=== PATIENT | male | born 1975 | race Caucasian/White ===

== ENCOUNTER 2017-10-30 19:14 | Emergency (ER) | payer BC ==
[2017-10-30 19:35] VITALS: BP 134/85
[2017-10-30] MEDS ORDERED: NAPROXEN 250 MG TABLET PO ONE (20:28)
[2017-10-30] MEDS ORDERED: CLINDAMYCIN HCL 150 MG CAPSULE PO ONE (20:28)
--- NOTE | 2017-10-30 20:31 | ER Document Report ---
HPI - HPI Patient complains to provider of: Right elbow swelling Onset: Just prior to arrival Onset/Duration: Gradual Quality of pain: Achy Pain Level: 4 Context: Patient presents complaining of right elbow swelling. Patient states he has similar episode one week ago but that it got better. Patient states area started to swell again today. Patient denies any trauma or rubbing of the elbow. Patient denies any fever. Associated Symptoms: Other - Right elbow tenderness with swelling. 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 IN LAST 30 DAYS: No - HEENT HEENT: Atraumatic, Normocephalic - NECK Neck: Normal Inspection, Supple - RESPIRATORY Respiratory: Breath Sounds Normal, No Respiratory Distress O2 Sat by Pulse Oximetry: 96 - CARDIOVASCULAR Cardiovascular: Regular Rate, Regular Rhythm Pulses: Normal: Radial - MUSCULOSKELETAL/EXTREMETIES Musculoskeletal/Extremeties: MAEW, FROM, Tender - Right olecranon tenderness with swelling and mild erythema, Edema - NEURO Level of Consciousness: Awake, Alert, Appropriate Motor/Sensory: No Motor Deficit, No Sensory Deficit - DERM Integumentary: Warm, Dry. negative: Abscess Notes: Erythema overlying olecranon process of right elbow Course - Re-evaluation Re-evalutation: 10/30/17 20:29 No concern for septic arthritis at this time. No concern for abscess overlying elbow. Will cover with antibiotic as patient is insistent that he has not had any traumatic injury or prolonged pressure to the elbow. Patient with full range of motion of his joint. Smoking cessation handout provided to patient - Vital Signs Vital signs: Temp Pulse Resp BP Pulse Ox 97.7 F 74 22 H 134/85 H 96 10/30/17 19:34 10/30/17 19:34 10/30/17 19:34 10/30/17 19:34 10/30/17 19:34 Discharge - Discharge Clinical Impression: Olecranon bursitis Qualifiers: Laterality: right Qualified Code(s): M70.21 - Olecranon bursitis, right elbow Condition: Stable Disposition: HOME, SELF-CARE Instructions: Anti-Inflammatory Medication ([facility]), Clindamycin ([facility]), Olecranon Bursitis ([facility]) Additional Instructions: Return immediately for any new or worsening symptoms Followup with your primary care provider, call tomorrow to make a followup appointment Follow-up with your orthopedic surgeon for further evaluation Prescriptions: Clindamycin HCl [Cleocin Hcl] 300 mg PO QID #28 capsule Naproxen [Naprosyn] 500 mg PO BID #14 tablet Forms: Smoking Cessation Education Referrals: [facility] [Provider Group] - 11/01/17
== END 2017-10-30 21:09 | disposition home or self-care (01) ==
LOC: ER 19:14
DX: M70.21 Olecranon bursitis, right elbow (principal); M79.89 Other specified soft tissue disorders; M25.521 Pain in right elbow; F17.200 Nicotine dependence, unspecified, uncomplicated
CPT/HCPCS: 99283

== ENCOUNTER 2018-03-15 16:55 | Observation (INO) | payer BC, OTHER ==
[2018-03-15] MEDS ORDERED: HYDROMORPHONE HCL INJ/PF 2 MG/ML AMPULE IV ONE ×2 (17:41→19:17)
[2018-03-15] MEDS ORDERED: DEXAMETHASONE SOD PHOS INJ 10 MG/1 ML VIAL IV ONE (17:42)
[2018-03-15] MEDS ORDERED: ONDANSETRON HCL INJ/PF 4 MG/2 ML SDV IV ONE (17:54)
[2018-03-15] MEDS ORDERED: METHOCARBAMOL INJ/PF 1000 MG/10 ML SDV IV ONE (18:09)
--- NOTE | 2018-03-15 18:36 | ER Document Report ---
ED General Pain - General Mode of Arrival: Medic Information source: Patient TRAVEL OUTSIDE OF THE U.S. IN LAST 30 DAYS: No <NADER ARTEAGA - Last Filed: 03/15/18 18:42> <PETEY SOMERS - Last Filed: 03/15/18 22:23> - General Chief Complaint: Back Pain Stated Complaint: BACK PAIN Time Seen by Provider: 03/15/18 17:28 Notes: Patient is a 42-year-old male who presents to the ER today 1 day post lumbar discectomy and cage placement at [facility] by Dr. Mitchell. Patient states that he was discharged this morning, was walking around the hospital just fine, took a [address] home and once home started to hurt. Patient states that he had a block placed in the hospital that made his left leg numb that it started to wear off on the drive. He states that his entire low back is hurting and radiating pain across the entire lower abdomen. He denies any numbness or tingling, loss of bladder or bowel function. He admits "I can finally feel my legs for the first time in 2 days." Patient states "I just need to be admitted so that my does not have to lift me, I do not want her to hurt herself if I am in pain like this." Patient was discharged on oxycodone which she has been on for years. (NADER ARTEAGA) - Related Data Allergies/Adverse Reactions: Penicillins Allergy (Severe, Verified 10/30/17 19:16) Anaphylaxis Past Medical History - General Information source: Patient - Social History Smoking Status: Current Every Day Smoker Chew tobacco use (# tins/day): No Drug Abuse: None Family History: Reviewed & Not Pertinent Patient has suicidal ideation: No Patient has homicidal ideation: No Renal/ Medical History: Denies: Hx Peritoneal Dialysis Past Surgical History: Reports: Hx Herniorrhaphy, Hx Orthopedic Surgery - back, umbilical, double hernia, <NADER ARTEAGA - Last Filed: 03/15/18 18:42> Review of Systems - Review of Systems Constitutional: No symptoms reported EENT: No symptoms reported Cardiovascular: No symptoms reported Respiratory: No symptoms reported Gastrointestinal: See HPI Genitourinary: No symptoms reported Male Genitourinary: No symptoms reported Musculoskeletal: See HPI Skin: No symptoms reported Hematologic/Lymphatic: No symptoms reported Neurological/Psychological: No symptoms reported <NADER ARTEAGA - Last Filed: 03/15/18 18:42> Physical Exam <NIYAHCARSONNADER GRANGER - Last Filed: 03/15/18 18:42> <PETEY SOMERS - Last Filed: 03/15/18 22:23> - Vital signs Vitals: Temp Pulse Resp BP Pulse Ox 97.9 F 83 20 136/84 H 94 03/15/18 17:44 03/15/18 17:44 03/15/18 17:44 03/15/18 17:44 03/15/18 17:44 - Notes Notes: PHYSICAL EXAMINATION: GENERAL: Obviously in pain, laying very still in the bed, in no acute distress. HEAD: Atraumatic, normocephalic. EYES: Pupils equal round and reactive to light, extraocular movements intact, sclera anicteric, conjunctiva are normal. NECK: Normal range of motion, supple without lymphadenopathy LUNGS: CTAB and equal. No wheezes rales or rhonchi. HEART: Regular rate and rhythm without murmurs ABDOMEN: Soft, left sided tenderness over incision, no induration or fluctuance. No guarding, no rebound BACK: Back brace on, lumbar vertebral tenderness, decreased ROM due to pain GI/: no CVA tenderness EXTREMITIES: Normal range of motion, good capillary refill, pulses and sensation distal legs, no pitting edema. No cyanosis. NEUROLOGICAL: Cranial nerves grossly intact. Normal sensory/motor exams. PSYCH: Normal mood, normal affect. SKIN: Warm, Dry, normal turgor, incision to left abdominal wall, well appearing (JENNINADER) Course <NADER ARTEAGA - Last Filed: 03/15/18 18:42> - Laboratory Result Diagrams: 03/15/18 18:55 03/15/18 18:55 <PETEY SOMERS - Last Filed: 03/15/18 22:23> - Re-evaluation Re-evalutation: 03/15/18 22:21 Patient is an afebrile, well-hydrated, 42-year-old male who presents to the ED with low back pain and left lower abdominal pain status post surgery yesterday. His pain is currently intractable, but does ease up with medications. CBC and BMP as well as an MRI of the lower back was unremarkable for any acute pathology at this time. Transfer not warranted, discussed with our hospitalist who evaluated the patient and accepted admission for intractable pain. He has no other significant tachycardia, tachypnea, or hypoxia. He is able to tolerate p.o. without difficulties. Direction per hospitalist otherwise. Patient and are in agreement. (PETEY SOMERS) - Vital Signs Vital signs: Temp Pulse Resp BP Pulse Ox 97.9 F 83 11 L 111/71 95 03/15/18 17:44 03/15/18 17:44 03/15/18 20:01 03/15/18 20:01 03/15/18 20:01 - Laboratory Laboratory results interpreted by me: 03/15/18 18:55 Carbon Dioxide 31 H Discharge <NADER ARTEAGA - Last Filed: 03/15/18 18:42> - Discharge Admitting Provider: Hospitalist - Dr. Wagner Unit Admitted: Medical Floor <PETEY SOMERS - Last Filed: 03/15/18 22:23> - Discharge Clinical Impression: Intractable back pain Condition: Stable Disposition: ADMITTED INPATIENT
[2018-03-15 19:12] LABS: ABSOLUTE BASOPHILS # (AUTO) 0.1 10^3/uL (0.0-0.2); ABSOLUTE EOSINOPHILS # (AUTO) 0.3 10^3/uL (0.0-0.6); ABSOLUTE LYMPHOCYTES (AUTO) 1.2 10^3/uL (0.5-4.7); ABSOLUTE MONOCYTES (AUTO) 0.7 10^3/uL (0.1-1.4); ABSOLUTE NEUT (AUTO) 7.1 10^3/uL (1.7-8.2); BASOPHILS % (AUTO) 0.6 % (0-2); EOSINOPHILS % (AUTO) 3.4 % (0-6); HEMATOCRIT 41.8 % (37.9-51.0); HEMOGLOBIN 14.4 g/dL (13.5-17.0); LYMPHOCYTES % (AUTO) 13.3 % (13-45); MEAN CORPUSCULAR HGB CONC 34.5 g/dL (32.0-36.0); MEAN CORPUSCULAR VOLUME 90 fl (80-97); MONOCYTES % (AUTO) 7.1 % (3-13); PLATELET COUNT 160 10^3/uL (150-450); RED BLOOD COUNT 4.66 10^6/uL (4.35-5.55); RED CELL DISTRIBUTION WIDTH 12.9 % (11.5-14.0); SEGMENTED NEUTROPHILS % (AUTO) 75.6 % (42-78); TOTAL CELLS COUNTED % (AUTO) 100 %; WHITE BLOOD COUNT 9.4 10^3/uL (4.0-10.5)
[2018-03-15 19:19] LABS: ANION GAP 8 (5-19); BLOOD UREA NITROGEN 14 mg/dL (7-20); CARBON DIOXIDE 31 mmol/L (22-30); CHLORIDE 103 mmol/L (98-107); GLUCOSE 107 mg/dL (75-110); POTASSIUM 4.3 mmol/L (3.6-5.0); SODIUM 141.6 mmol/L (137-145)
--- NOTE | 2018-03-15 21:49 | RADIOLOGY REPORT (SQ) ---
EXAM DESCRIPTION: MRI LUMBAR SPINE COMBO COMPLETED DATE/TIME: 03/15/2018 9:36 pm REASON FOR STUDY: discectomy yesterday, cage placed, acute pain COMPARISON: None. TECHNIQUE: Sagittal and Axial imaging includes T1, T1 post gadolinium, T2, STIR and gradient echo se quences. Coronal T2/HASTE imaging. CONTRAST TYPE AND DOSE: 20 mL Multihance. RENAL FUNCTION: GFR > 60. LIMITATIONS: None. FINDINGS: VISUALIZED UPPER ABDOMEN: Limited evaluation. No acute or suspicious findings suggested. SEGMENTATION: No transitional anatomy. The lowest well-developed disc space is labeled L5-S1. ALIGNMENT: Anatomic. VERTEBRAE: Intact. No fractures. BONE MARROW: Normal. No marrow replacement or reactive changes. DISC SIGNAL: Normal. No significant abnormal signal or loss of height. POSTERIOR ELEMENTS: Generally intact. No pars defect evident. HARDWARE: Disc inserts and hardware at L4-L5. CORD AND CONUS: Normal in size and signal intensity. Conus at the appropriate level. SOFT TISSUES: No aortic aneurysm seen. No bulky retroperitoneal adenopathy or mass. No paraspinal mas s or fluid. L1-L2: No significant spinal stenosis or exit foraminal stenosis. L2-L3: No significant spinal stenosis or exit foraminal stenosis. L3-L4: No significant spinal stenosis or exit foraminal stenosis. L4-L5: Moderate facet arthropathy. No significant spinal stenosis or exit foraminal stenosis. L5-S1: No significant spinal stenosis or exit foraminal stenosis. LOWER THORACIC: Incompletely imaged. No stenosis seen. SACRUM: Visualized upper sacrum intact. ENHANCEMENT: No abnormal enhancement. OTHER: No other significant findings. IMPRESSION: SURGICAL CHANGES WITH HARDWARE AT L4-L5. OTHERWISE UNREMARKABLE MRI OF THE LUMBAR SPINE . NO STENOSIS OR IMPINGEMENT. NO POSTOPERATIVE COMPLICATION. TECHNICAL DOCUMENTATION: JOB ID: [id number] [employer]- All Rights Reserved Reading location - IP/workstation name: [email or web address]
[2018-03-15] MEDS ORDERED: ONDANSETRON HCL INJ/PF 4 MG/2 ML SDV IV PRN (22:27)
[2018-03-15] MEDS ORDERED: ACETAMINOPHEN 650 MG SUPP.RECT PR PRN (22:27)
[2018-03-15] MEDS ORDERED: FENTANYL 75 MCG/HR PATCH.TD72 TD ONE (22:32)
--- NOTE | 2018-03-15 22:44 | PDOC H&P ---
History of Present Illness Admission Date/PCP: 03/15/18 22:25 History of Present Illness: NORMAN MIRELES is a 42 year old male patient who does not have significant medical problem except back pain and for which she has multiple back surgeries. His recent back surgery was the day before yesterday and he had lumbar discectomy and cage placement at [facility] by Dr. Mitchell. Patient discharged this morning back home after 3 hours driving. By the time he arrived home he starts to have excruciating lower back pain radiating to his lower abdomen. He has been taking oxycodone 20 mg to no avail. Patient has MRI of the back here at ER and there is no evidence of hematoma. Patient denies weakness or numbness of the lower extremity. He is able to control his bowel and bladder. Patient denied any fever, chills, nausea, vomiting or diarrhea. No urinary complaint. No headache, dizziness or change in his visual status. Past Medical History Musculoskeltal Medical History: Reports: Other - Chronic back pain Past Surgical History Past Surgical History: Reports: Herniorrhaphy, Orthopedic Surgery - back, umbilical, double hernia, Social History Smoking Status: Current Every Day Smoker Drugs: None Family History Family History: None, Reviewed & Not Pertinent Parental Family History Reviewed: Yes Children Family History Reviewed: Yes Sibling(s) Family History Reviewed.: Yes Medication/Allergy Home Medications: Clindamycin HCl [Cleocin Hcl] 300 mg PO QID #28 capsule 10/30/17 Naproxen [Naprosyn] 500 mg PO BID #14 tablet 10/30/17 Allergies/Adverse Reactions: Penicillins Allergy (Severe, Verified 10/30/17 19:16) Anaphylaxis Review of Systems Constitutional: PRESENT: as per HPI Ears: PRESENT: as per HPI Cardiovascular: PRESENT: as per HPI Respiratory: PRESENT: as per HPI Gastrointestinal: PRESENT: as per HPI Neurological: PRESENT: as per HPI Psychiatric: PRESENT: as per HPI Physical Exam Vital Signs: Temp Pulse Resp BP Pulse Ox 97.9 F 83 11 L 111/71 95 03/15/18 17:44 03/15/18 17:44 03/15/18 20:01 03/15/18 20:01 03/15/18 20:01 General appearance: PRESENT: mild distress Head exam: PRESENT: atraumatic, normocephalic Mouth exam: PRESENT: dry mucosa Respiratory exam: PRESENT: clear to auscultation sera. ABSENT: rales, rhonchi, wheezes Cardiovascular exam: PRESENT: RRR. ABSENT: diastolic murmur, rubs, systolic murmur GI/Abdominal exam: PRESENT: normal bowel sounds, soft. ABSENT: distended, guarding, mass, organolmegaly, rebound, tenderness Neurological exam: PRESENT: alert, awake, oriented to time, oriented to situation Psychiatric exam: PRESENT: normal mood Results Impressions: Lumbar Spine MRI 03/15/18 17:41 IMPRESSION: SURGICAL CHANGES WITH HARDWARE AT L4-L5. OTHERWISE UNREMARKABLE MRI OF THE LUMBAR SPINE. NO STENOSIS OR IMPINGEMENT. NO POSTOPERATIVE COMPLICATION. Assessment & Plan - Diagnosis (1) Intractable back pain Is this a current diagnosis for this admission?: Yes Plan: Patient has been started on 2 mg of Dilaudid every 2 hours as needed, fentanyl patch 75 mcg every 72 hours, diazepam, Flexeril
[2018-03-15] MEDS ORDERED: CYCLOBENZAPRINE HCL 10 MG TABLET PO ONE (23:15)
[2018-03-15] MEDS ORDERED: DIAZEPAM 5 MG TABLET PO ONE (23:15)
[2018-03-16] MEDS: HYDROMORPHONE HCL INJ/PF 2 MG/ML AMPULE IV PRN ×8 (00:06→21:57)
[2018-03-16] MEDS: CYCLOBENZAPRINE HCL 10 MG TABLET PO SCH ×3 (05:06→21:56)
[2018-03-16] MEDS: LANSOPRAZOLE 15 MG TAB.RAP.DR PO SCH (05:06)
[2018-03-16] MEDS: DIAZEPAM 5 MG TABLET PO SCH ×3 (05:06→21:56)
[2018-03-16] MEDS: ENOXAPARIN SODIUM INJ 40 MG/0.4 ML DISP.SYRIN SUBCUT SCH (09:33)
[2018-03-16] MEDS: SENNOSIDES/DOCUSATE 8.6-50 MG 1 EACH TABLET PO SCH ×2 (11:11→18:50)
[2018-03-16] MEDS ORDERED: MAGNESIUM CITRATE 296 ML BOTTLE PO ONE (21:45)
[2018-03-17] MEDS: HYDROMORPHONE HCL INJ/PF 2 MG/ML AMPULE IV PRN ×4 (00:13→09:23)
[2018-03-17] MEDS: CYCLOBENZAPRINE HCL 10 MG TABLET PO SCH ×3 (06:17→21:19)
[2018-03-17] MEDS: LANSOPRAZOLE 15 MG TAB.RAP.DR PO SCH (06:17)
[2018-03-17] MEDS: DIAZEPAM 5 MG TABLET PO SCH ×3 (06:17→21:02)
--- NOTE | 2018-03-17 08:32 | Progress Note ---
Provider Note Provider Note: Agree with Associate Medical Director plan of care. Continue IV dilaudid and valium for back pain. The patient states that his pain is relatively well controlled, rates the severity 3/5. Patient states that his home regimen of Oxycodone and Oxycontin did not work to control his pain. Consulted Dr. Mayo (pain management), appreciate his recommendations
[2018-03-17] MEDS: ENOXAPARIN SODIUM INJ 40 MG/0.4 ML DISP.SYRIN SUBCUT SCH (09:16)
[2018-03-17] MEDS: SENNOSIDES/DOCUSATE 8.6-50 MG 1 EACH TABLET PO SCH ×2 (10:10→18:31)
[2018-03-17] MEDS: OXYCODONE HCL SR 10 MG TABLET PO SCH ×2 (14:10→21:00)
[2018-03-17] MEDS: OXYCODONE HCL IR 5 MG TABLET PO PRN ×2 (16:46→21:00)
--- NOTE | 2018-03-17 17:56 | PDOC PROGRESS REPORT ---
Subjective Progress Note for:: 03/17/18 Subjective:: NORMAN MIRELES is a 42 y.o. male who presented to the emergency department with back pain following a recent lumbar discectomy and cage placement at [facility] in [place]. He has no PMH other than chronic back pain. The patient was seen this morning on rounds, he was ambulating in the hallway with a walker. The patient states that while he is able to ambulate it is very painful. He denies parasthesia to his lower extremities and has full ROM ( albeit painful). The patient states that the current regimen of IV Dilaudid and Versed is moderately controlling his pain. Consulted with Dr. Mayo ([facility] pain management) this morning, who coincidentally had a teleconference earlier today with the patient's pain management doctor from [place]. Dr. Mayo recommends increasing the frequency of patient's home pain regimen (see below for details). Reason For Visit: INTRACTABLE PAIN Physical Exam Vital Signs: Temp Pulse Resp BP Pulse Ox 98.4 F 63 16 118/68 97 03/17/18 11:48 03/17/18 11:48 03/17/18 11:48 03/17/18 11:48 03/17/18 11:48 Intake & Output 03/16/18 03/17/18 03/18/18 06:59 06:59 06:59 Intake Total 320 644 Balance 320 644 Weight 107.2 kg 110.3 kg General appearance: PRESENT: no acute distress Eye exam: PRESENT: conjunctiva pink, PERRLA Mouth exam: PRESENT: moist Neck exam: PRESENT: full ROM Respiratory exam: PRESENT: symmetrical, unlabored Cardiovascular exam: PRESENT: +S1, +S2 Pulses: PRESENT: normal radial pulses, normal dorsalis pedis pul GI/Abdominal exam: PRESENT: soft, tenderness - +TTP at L flank surgical site Rectal exam: PRESENT: deferred Extremities exam: PRESENT: full ROM Musculoskeletal exam: PRESENT: ambulatory - w/ walker, full ROM Neurological exam: PRESENT: alert, awake, oriented to person, oriented to place , oriented to time, oriented to situation Psychiatric exam: PRESENT: appropriate affect Skin exam: PRESENT: intact, normal color, warm, other - Surgical incision is clean dry and intact Results Impressions: Lumbar Spine MRI 03/15/18 17:41 IMPRESSION: SURGICAL CHANGES WITH HARDWARE AT L4-L5. OTHERWISE UNREMARKABLE MRI OF THE LUMBAR SPINE. NO STENOSIS OR IMPINGEMENT. NO POSTOPERATIVE COMPLICATION. Status: Imported from PACS Assessment & Plan - Diagnosis (1) Intractable back pain Is this a current diagnosis for this admission?: Yes Plan: Improving. S/p lumbar discectomy and cage placement at [facility] in [place] He was discharged home and he was the passenger in a 3 [address] ride from [place] to [place]. Admitted for intractable pain Consulted Dr. Mayo ([facility] Pain Mgmt.) who recommended increasing the frequenct of the patient's home medication regimen. Patient started on Oxycontin 20mg TID and Oxy-IR 10mg q4hr. If this pain regimen does not work, will re-consult Dr. Mayo, who stated he will come to the hospital and assess the patient. If the new regimen is able to control the patient's pain, plan for discharge tomorrow morning. - Time Time Spent with patient: 15-24 minutes Medications reviewed and adjusted accordingly: Yes Anticipated discharge: Home Within: within 24 hours - Inpatient Certification Based on my medical assessment, after consideration of the patient's comorbidities, presenting symptoms, or acuity I expect that the services needed warrant INPATIENT care.: Yes I certify that my determination is in accordance with my understanding of Medicare's requirements for reasonable and necessary INPATIENT services [42 CFR 412.3e].: Yes Medical Necessity: Risk of Complication if Not Cared For in Hospital
[2018-03-17] MEDS ORDERED: POLYETHYLENE GLYCOL 3350 POWDER 17 GM/1 PACKET PO ONE (21:00)
[2018-03-17] MEDS ORDERED: HYDROMORPHONE HCL INJ/PF 2 MG/ML AMPULE IV ONE (23:45)
[2018-03-17] MEDS ORDERED: HYDROMORPHONE HCL INJ/PF 2 MG/ML AMPULE ONE (23:47)
[2018-03-18] MEDS: OXYCODONE HCL IR 5 MG TABLET PO PRN ×3 (01:43→10:28)
[2018-03-18] MEDS: OXYCODONE HCL SR 10 MG TABLET PO SCH (06:07)
[2018-03-18] MEDS: CYCLOBENZAPRINE HCL 10 MG TABLET PO SCH (06:07)
[2018-03-18] MEDS: LANSOPRAZOLE 15 MG TAB.RAP.DR PO SCH (06:08)
[2018-03-18] MEDS: DIAZEPAM 5 MG TABLET PO SCH (06:20)
[2018-03-18] MEDS ORDERED: SENNOSIDES/DOCUSATE 8.6-50 MG 1 EACH TABLET PO SCH (10:00)
[2018-03-18] MEDS: ENOXAPARIN SODIUM INJ 40 MG/0.4 ML DISP.SYRIN SUBCUT SCH (10:30)
[2018-03-18] MEDS ORDERED: MAGNESIUM HYDROXIDE SUSP 30 ML UDCUP PO ONE (12:30)
[2018-03-18 13:03] VITALS: BP 119/75
--- NOTE | 2018-03-21 13:27 | PDOC DISCHARGE SUMMARY ---
General - Admit/Disc Date/PCP Admission Date/Primary Care Provider: 03/15/18 22:25 Discharge Date: 03/18/18 - Discharge Diagnosis (1) Intractable back pain Is this a current diagnosis for this admission?: Yes - Additional Information Resuscitation Status: Full Code Discharge Diet: As Tolerated Discharge Activity: Activity As Tolerated Prescriptions: Sennosides/Docusate 8.6-50 mg [Senna Plus Tablet] 2 each PO BID #120 tablet Home Medications: Oxycodone HCl [Oxycodone HCl 10 MG Tablet] 10 mg PO QID PRN 03/16/18 Oxycodone HCl [Oxycontin Sr 10 mg Tablet] 20 mg PO BID 03/16/18 Sennosides/Docusate 8.6-50 mg [Senna Plus Tablet] 2 each PO BID #120 tablet History of Present Illness History of Present Illness: NORMAN MIRELES is a 42 year old male patient who does not have significant medical problem except back pain and for which she has multiple back surgeries. His recent back surgery was the day before yesterday and he had lumbar discectomy and cage placement at [facility] by Dr. Mitchell. Patient discharged this morning back home after 3 hours driving. By the time he arrived home he starts to have excruciating lower back pain radiating to his lower abdomen. He has been taking oxycodone 20 mg to no avail. Patient has MRI of the back here at ER and there is no evidence of hematoma. Patient denies weakness or numbness of the lower extremity. He is able to control his bowel and bladder. Patient denied any fever, chills, nausea, vomiting or diarrhea. No urinary complaint. No headache, dizziness or change in his visual status. Hospital Course Hospital Course: 42-year-old male presented to the emergency department with complaints of lower back pain. The patient states he recently underwent back surgery at [facility] in [place]. Upon his day of discharge, the patient and his drove 3 hours from [place] to [place], [place]. Upon arrival to ID, the patient began experiencing significant back pain. The patient denied paresthesias to his lower extremities, he did not lose bowel or bladder function , and he was able to ambulate with the use of a walker. The patient was admitted to [facility] for intractable pain. The patient had a long-standing history of chronic back pain, he was followed by a traffic line painter in [place]. He was on a daily regimen of oxycodone and OxyContin, which was continued on a temporary basis following his back surgery. Initially treated with IV Dilaudid and IV Valium as needed. Dr. Mayo, pain management, was consulted. He recommended increasing the frequency of the patient's home dose oxycodone and OxyContin. The patient was started on a regimen of Oxycontin 20mg TID and Oxy-IR 10mg q4hr. Physical therapy was able to evaluate and treat the patient, they recommended a number of assistive devices including a rolling walker and bedside commode. Discharge planning was able to arrange for delivery of these items. After 24 hours on his new pain regimen, the patient stated that his pain was tolerable and that he wanted to go home. Ultimately, the patient was discharged with instructions regarding his new regimen (new narcotics prescriptions were not required since he already had the appropriate medications at home). Additionally, the patient expressed a desire to follow- up with a local pain management doctor, he was given a referral for Dr. Mayo. Physical Exam Vital Signs: Temp Pulse Resp BP Pulse Ox 97.4 F 70 19 119/75 97 03/18/18 13:00 03/18/18 13:00 03/18/18 13:00 03/18/18 13:00 03/18/18 13:00 Results Impressions: Lumbar Spine MRI 03/15/18 17:41 IMPRESSION: SURGICAL CHANGES WITH HARDWARE AT L4-L5. OTHERWISE UNREMARKABLE MRI OF THE LUMBAR SPINE. NO STENOSIS OR IMPINGEMENT. NO POSTOPERATIVE COMPLICATION. Status: Imported from PACS Qualifiers - * PATIENT BEING DISCHARGED WITH ANY OF THE FOLLOWING DIAGNOSIS: No Plan Discharge Plan: Discharge home with follow-up to Dr. Mayo, traffic line painter Time Spent: Less than 30 Minutes
== END 2018-03-18 13:00 | disposition home health service (06) ==
LOC: ER 16:55 → EH 22:25 → INTOOBSV 22:25 → OBSVTOIN 22:25 → 5 23:50 → INTOOBSV 03-17 12:47 → OBSVTOIN 03-17 12:47 → UNDODISIN 03-18 13:00
PROVIDERS: ADMIT Internal Medicine; ATTEND Internal Medicine
DX: M54.89 Other dorsalgia (principal); Z98.890 Other specified postprocedural states; F17.200 Nicotine dependence, unspecified, uncomplicated
CPT/HCPCS: 96376; 99285; 96374; 96375; 36415; 85025; 80048; 72158; 97116; 97163; 97530; 97535; 97167; G0378 ×3; A9270; J3490 ×6; J2800; J1650 ×2; J1170 ×3; J2405; J1100

== ENCOUNTER 2018-03-29 15:29 | Emergency (ER) | payer OTHER ==
[2018-03-29] MEDS ORDERED: DEXAMETHASONE SOD PHOS INJ 10 MG/1 ML VIAL IM ONE (17:09)
[2018-03-29] MEDS ORDERED: KETOROLAC TROMETHAMINE 60 MG/2 ML SDV IM ONE (17:09)
--- NOTE | 2018-03-29 17:12 | ER Document Report ---
ED Neck/Back Problem - General Chief Complaint: Back Pain Stated Complaint: FALL, BACK PAIN Time Seen by Provider: 03/29/18 17:06 Mode of Arrival: Ambulatory Information source: Patient Notes: 42-year-old male presents to ED for complaint of increasing back pain. He states that on the he had a surgery to L4-L5 with disc removed. He states he tripped over a shoe and fell over a footstool today now he has pain going down the left leg down to the foot with some pain on the right to the buttocks. He states his surgeon is Susan [facility] orth[facility] in [facility]. He states he has an appointment with his orthopedics on 31 March. He is on OxyContin 20 mg ER 2 times a day and oxycodone 10 mg 4 times a day as needed. He states he has not looking for pain medicine he is just trying to make sure there is nothing else he needs to do at this time. TRAVEL OUTSIDE OF THE [place] IN LAST 30 DAYS: No - HPI Patient complains to provider of: Pain, Lower back - Fall Onset: Other - Surgery on the fall today Where: Home Onset: Sudden Timing: Still present Quality of pain: Burning Severity: Moderate Context: Fall/near-fall Recent injury: Yes Associated symptoms: Radiation to leg, Lower back pain. denies: Numbness/ tingling Exacerbated by: Movement of trunk Relieved by: Nothing Similar symptoms previously: Yes Recently seen / treated by doctor: Yes - Related Data Allergies/Adverse Reactions: Penicillins Allergy (Severe, Verified 03/29/18 16:58) Anaphylaxis Past Medical History - General Information source: Patient - Social History Smoking Status: Unknown if Ever Smoked Chew tobacco use (# tins/day): No Smoking Education Provided: No Frequency of alcohol use: None Drug Abuse: None Family History: None, Reviewed & Not Pertinent Patient has suicidal ideation: No Patient has homicidal ideation: No - Past Medical History Cardiac Medical History: Reports: None Pulmonary Medical History: Reports: None EENT Medical History: Reports: None Neurological Medical History: Reports: None Endocrine Medical History: Reports: None Musculoskeltal Medical History: Reports Hx Musculoskeletal Deformity, Reports Hx Musculoskeletal Trauma Past Surgical History: Reports: Hx Herniorrhaphy, Hx Orthopedic Surgery - back, umbilical, double hernia, Review of Systems - Review of Systems Constitutional: No symptoms reported EENT: No symptoms reported Cardiovascular: No symptoms reported Respiratory: No symptoms reported Gastrointestinal: No symptoms reported Genitourinary: No symptoms reported Male Genitourinary: No symptoms reported Musculoskeletal: Back pain - Radiating to left foot and right buttocks, Muscle pain, Muscle stiffness Skin: No symptoms reported Hematologic/Lymphatic: No symptoms reported Neurological/Psychological: No symptoms reported -: Yes All other systems reviewed and negative Physical Exam - Vital signs Vitals: Temp Pulse Resp BP Pulse Ox 97.4 F 89 18 141/94 H 96 03/29/18 15:42 03/29/18 15:42 03/29/18 15:42 03/29/18 15:42 03/29/18 15:42 Interpretation: Normal - General General appearance: Appears well, Alert - HEENT Head: Normocephalic, Atraumatic Eyes: Normal Pupils: PERRL - Respiratory Respiratory status: No respiratory distress Chest status: Nontender Breath sounds: Normal Chest palpation: Normal - Cardiovascular Rhythm: Regular Heart sounds: Normal auscultation Murmur: No - Abdominal Inspection: Normal Distension: No distension Bowel sounds: Normal Tenderness: Nontender Organomegaly: No organomegaly - Back Back: Normal, Tender, Scars. No: Deformity/step-off, CVA tenderness, Vertebra tenderness, Scoliosis, Wounds - Extremities General upper extremity: Normal inspection, Nontender, Normal color, Normal ROM , Normal temperature General lower extremity: Normal inspection, Nontender, Normal color, Normal ROM , Normal temperature, Normal weight bearing. No: Olivia's sign - Neurological Neuro grossly intact: Yes Cognition: Normal Orientation: AAOx4 Mary Jane Coma Scale Eye Opening: Spontaneous Mary Jane Coma Scale Verbal: Oriented Mary Jane Coma Scale Motor: Obeys Commands Mary Jane Coma Scale Total: 15 Speech: Normal Motor strength normal: LUE, RUE, LLE, RLE Sensory: Normal - Psychological Associated symptoms: Normal affect, Normal mood - Skin Skin Temperature: Warm Skin Moisture: Dry Skin Color: Normal Course - Re-evaluation Re-evalutation: 03/30/18 02:16 Patient's assessment and history was discussed with Dr. Roman, he stated the patient did not need any imaging at this time. Patient was treated with Toradol and Decadron IM for his pain and encouraged to follow-up with his orthopedic doctor in [facility]. Patient is on OxyContin 20 mg ER 2 times a day and oxycodone 10 mg 4 times a day. Patient is to follow- up with his orthopedic doctor and to return to the ED for any signs or symptoms of cauda equina such as loss control of bowel bladder loss control of lower extremities loss of sensation to the saddle area or the lower extremities. He denies any of these at this time. He is able to get up and walk. He verbalized understanding of instructions and agreement with this treatment plan. - Vital Signs Vital signs: Temp Pulse Resp BP Pulse Ox 97.8 F 84 16 118/74 95 03/29/18 17:49 03/29/18 17:49 03/29/18 17:49 03/29/18 17:49 03/29/18 17:49 Discharge - Discharge Clinical Impression: Low back pain Qualifiers: Chronicity: acute Back pain laterality: bilateral Sciatica presence: with sciatica Sciatica laterality: sciatica of left side Qualified Code(s): M54.42 - Lumbago with sciatica, left side Condition: Stable Disposition: HOME, SELF-CARE Additional Instructions: LOW BACK PAIN: Three out of every four people will have an episode of disabling back pain during their lifetime. Most commonly the pain is due to straining of the muscles and ligaments in the low back. Usual treatment includes: (1) Rest on a firm surface. Avoid lying on your stomach. (2) Ice pack the painful area. After a few days, gentle heat may be used intermittently to relax the area, or ice packs can be continued. (3) Medication may be needed -- muscle relaxers and antiinflammatory medicines are commonly used. (4) As the back improves, exercises are prescribed to strengthen the back and abdominal muscles. Your doctor will advise you on the proper care for your back at each stage in your recovery. You may be better in a few days -- or healing may take several weeks. If new symptoms of a "herniated disc" (radiation of pain, numbness, or tingling down the back of the leg or weakness in the leg) occur, you should be re-examined. Further testing may be necessary. ICE PACKS: Apply ice packs frequently against the painful area. Many different schedules are recommended, such as "20 minutes on, 20 minutes off" or "one hour ice, two hours rest." If you need to work, you may need to go longer between ice treatments. You should plan to have the area ice packed AT LEAST one fourth of the time. The ice should be applied over the wrap, tape, or splint, or over a layer of cloth -- not directly against the skin. Some ice bags have a built-in cloth and can be put directly on the skin. WARM PACKS: After approximately two days, apply gentle heat (such as a heating pad or hot water bottle) for about 20 to 30 minutes about every two hours -- at least four times daily. Warmth and elevation will help you make a more rapid recovery , and will ease the pain considerably. Do not use HOT heat, and never apply heat for longer than 30 minutes. The continuous heat can invisibly damage skin and muscles -- even when no burn is seen on the surface. Damaged muscles can make you MORE sore. Toradol Injection You have been given an injection of ketorolac tromethamine (Toradol). This is an excellent, safe drug for pain control. It also has potent antiinflammatory action. You should have significant pain relief within about one hour. Toradol is not addicting and is non-sedating. It does not interfere with driving or work. Call or return if you develop itching, hives, shortness of breath, or rash. STEROID MEDICATION: You have been given an injection of medicine of the cortisone/steroid class. This medication is used to control inflammation or allergy. It is often continued as a pill for a short period of time, until the acute process subsides. There are usually no side effects from short-term use of cortisone-like medications. Some persons feel an increased sense of well-being and are not sleepy at bedtime. Long-term use of cortisone medications is best avoided, unless required for a severe condition. If your condition does not remit, or relapses after the course of corticosteroid medication, you should consult your physician. FOLLOW-UP CARE: If you have been referred to a physician for follow-up care, call the physician s office for an appointment as you were instructed or within the next two days. If you experience worsening or a significant change in your symptoms, notify the physician immediately or return to the Emergency Department at any time for re-evaluation. Follow-up with your orthopedic doctor as scheduled. You may can return to the ED immediately for any increase in pain or decrease in sensation to your legs. Please follow-up immediately for any loss of control of bowel or bladder. Forms: Elevated Blood Pressure
[2018-03-29 17:55] VITALS: BP 118/74
== END 2018-03-29 17:55 | disposition home or self-care (01) ==
LOC: ER 15:29
DX: M54.42 Lumbago with sciatica, left side (principal); M54.9 Dorsalgia, unspecified; W01.10XA Fall on same level from slipping, tripping and stumbling with subsequent striking against unspecified object, initial encounter; Z88.0 Allergy status to penicillin
CPT/HCPCS: 99283; 96372; J1885; J1100

== ENCOUNTER → 2018-09-19 | Outpatient (CLI) | payer OTHER ==
--- NOTE | 2018-09-19 15:45 | EKG REPORT ---
SEVERITY:- BORDERLINE ECG - SINUS RHYTHM BORDERLINE T ABNORMALITIES, INFERIOR LEADS : Confirmed by: Monserrat Espinoza MD 19-Sep-2018 15:45:12
== END ==
LOC: OD 08:05
PROVIDERS: ATTEND Pain Medicine Interventional Pain Medicine
DX: I49.9 Cardiac arrhythmia, unspecified (principal)
CPT/HCPCS: 93005; 93010

== ENCOUNTER 2019-01-04 06:35 | Observation (INO) | payer OTHER ==
--- NOTE | 2019-01-04 07:08 | ER Document Report ---
ED General - General Chief Complaint: Chest Pain Stated Complaint: CHEST PAINS Time Seen by Provider: 01/04/19 07:06 Mode of Arrival: Ambulatory Information source: Patient TRAVEL OUTSIDE OF THE [place] 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 Patient has a history of having patient states he started having shortness of breath and felt like a "elephant was sitting on his chest early this morning along with left arm pain. States pain is stabbing and throbbing, radiates to the neck. Has not tried anything [id number]. Primary care provider is Kang nieto, states he was placed on a diuretic roughly 2 or 3 months ago. Patient does not see a construction millwright for his small lung syndrome. Reports mother had a regular heart attack at 53, unknown her father. Patient did get a heart cath 8 years ago in [facility], stress test was done but stopped due to abnormality, no stents were placed, - Related Data Allergies/Adverse Reactions: Penicillins Allergy (Severe, Verified 03/29/18 16:58) Anaphylaxis Past Medical History - General Information source: Patient - Social History Smoking Status: Current Every Day Smoker Family History: None, Reviewed & Not Pertinent Renal/ Medical History: Denies: Hx Peritoneal Dialysis Musculoskeletal Medical History: Reports Hx Musculoskeletal Deformity, Reports Hx Musculoskeletal Trauma Past Surgical History: Reports: Hx Herniorrhaphy, Hx Orthopedic Surgery - back, umbilical, double hernia, Review of Systems - Review of Systems Constitutional: No symptoms reported EENT: No symptoms reported Cardiovascular: See HPI Respiratory: No symptoms reported Gastrointestinal: No symptoms reported Genitourinary: No symptoms reported Male Genitourinary: No symptoms reported Musculoskeletal: No symptoms reported Skin: No symptoms reported Hematologic/Lymphatic: No symptoms reported Neurological/Psychological: No symptoms reported Physical Exam - Vital signs Vitals: Temp Pulse Resp BP Pulse Ox 97.8 F 84 17 137/85 H 95 01/04/19 06:36 01/04/19 06:36 01/04/19 06:36 01/04/19 06:36 01/04/19 06:36 - Notes Notes: PHYSICAL EXAMINATION: GENERAL: Well-appearing, well-nourished and in no acute distress. HEAD: Atraumatic, normocephalic. EYES: Pupils equal round and reactive to light, extraocular movements intact, sclera anicteric, conjunctiva are normal. ENT: Nares patent, oropharynx clear without exudates. Moist mucous membranes. NECK: Normal range of motion, supple without lymphadenopathy LUNGS: Breath sounds clear to auscultation bilaterally and equal. No wheezes rales or rhonchi. HEART: Regular rate and rhythm without murmurs ABDOMEN: Soft, nontender, nondistended abdomen. No guarding, no rebound. No masses appreciated. Musculoskeletal: Normal range of motion, no pitting or edema. No cyanosis. NEUROLOGICAL: Cranial nerves grossly intact. Normal speech, normal gait. Norm al sensory, motor exams PSYCH: Normal mood, normal affect. SKIN: Warm, Dry, normal turgor, no rashes or lesions noted. Course - Re-evaluation Re-evalutation: 01/04/19 10:47 For complaints of chest pain radiating to his neck with dizzy spells since this morning, afebrile, vitals stable except for patient requiring 2 L of oxygenation here has a history of small lung syndrome, reports pain is stabbing and throbbing, radiates to his neck with slight shortness of breath. CTA negative for acute PE, AAA, vascular congestion or pneumonia, noted atelectasis. CBC negative for leukocytosis or anemia, CMP unremarkable. first set of troponin negative, EKG non-STEMI, does not show ST segment changes from last EKG. she requires 2 L nasal cannula to keep oxygenation above 92%, which is days roughly 93%when patient is not receiving supplemental oxygenation, his pulse oxygenation deceases to to 89-90% on room air, with ambulation patient down to patient given IV hydration. Pt given nitro sublingual 0.4 given at 0945, noted chest pain relief after nitro. Stable, afebrile, vitals stable and in no distress patient still on observation to medical service patient on telemetry for further observation of unstable angina as well as supplemental oxygen dependence, pt and agreeable with plan of care and verbalized understanding of need for observation for his symptoms. - Vital Signs Vital signs: Temp Pulse Resp BP Pulse Ox 97.8 F 84 12 128/68 H 92 01/04/19 06:36 01/04/19 06:36 01/04/19 13:01 01/04/19 13:00 01/04/19 13:01 - Laboratory Result Diagrams: 01/04/19 07:13 01/04/19 07:13 Laboratory results interpreted by me: 01/04/19 01/04/19 07:13 07:50 Carbon Dioxide 31 H Creatine Kinase 208 H Urine Blood LARGE H Discharge - Discharge Clinical Impression: Unstable angina, Supplemental oxygen dependent Condition: Good Disposition: ADMITTED OBSERVATION Admitting Provider: MAYELA Corona Unit Admitted: Telemetry
[2019-01-04 07:34] LABS: ABSOLUTE BASOPHILS # (AUTO) 0.1 10^3/uL (0.0-0.2); ABSOLUTE EOSINOPHILS # (AUTO) 0.3 10^3/uL (0.0-0.6); ABSOLUTE LYMPHOCYTES (AUTO) 1.6 10^3/uL (0.5-4.7); ABSOLUTE MONOCYTES (AUTO) 0.5 10^3/uL (0.1-1.4); ABSOLUTE NEUT (AUTO) 4.7 10^3/uL (1.7-8.2); BASOPHILS % (AUTO) 0.9 % (0-2); EOSINOPHILS % (AUTO) 3.8 % (0-6); HEMATOCRIT 43.8 % (37.9-51.0); HEMOGLOBIN 15.4 g/dL (13.5-17.0); LYMPHOCYTES % (AUTO) 22.1 % (13-45); MEAN CORPUSCULAR HEMOGLOBIN 31.1 pg (27.0-33.4); MEAN CORPUSCULAR VOLUME 89 fl (80-97); MONOCYTES % (AUTO) 7.6 % (3-13); PLATELET COUNT 173 10^3/uL (150-450); RED BLOOD COUNT 4.93 10^6/uL (4.35-5.55); RED CELL DISTRIBUTION WIDTH 13.2 % (11.5-14.0); SEGMENTED NEUTROPHILS % (AUTO) 65.6 % (42-78); TOTAL CELLS COUNTED % (AUTO) 100 %; WHITE BLOOD COUNT 7.1 10^3/uL (4.0-10.5)
[2019-01-04 07:36] LABS: INTERNATIONAL RATION (INR) 0.98; PROTHROMBIN TIME 13.5 SEC (11.4-15.4)
[2019-01-04 07:56] LABS: ALANINE AMINOTRANSFERASE 47 U/L (21-72); ALBUMIN 4.6 g/dL (3.5-5.0); ALKALINE PHOSPHATASE 64 U/L (38-126); ANION GAP 11 (5-19); ASPARTATE AMINO TRANSFERASE 43 U/L (17-59); BILIRUBIN,DIRECT 0.3 mg/dL (0.0-0.4); BILIRUBIN,TOTAL 0.5 mg/dL (0.2-1.3); BLOOD UREA NITROGEN 17 mg/dL (7-20); CALCIUM 9.8 mg/dL (8.4-10.2); CARBON DIOXIDE 31 mmol/L (22-30); CHLORIDE 103 mmol/L (98-107); CREATINE KINASE 208 U/L (55-170); GLUCOSE 94 mg/dL (75-110); LIPASE 71.1 U/L (23-300); POTASSIUM 4.5 mmol/L (3.6-5.0); SODIUM 144.6 mmol/L (137-145); TOTAL PROTEIN 7.5 g/dL (6.3-8.2)
[2019-01-04 08:06] LABS: CREATINE KINASE MB 1.79 ng/mL (<4.55)
[2019-01-04 08:07] LABS: TROPONIN I < 0.012 ng/mL
[2019-01-04 08:17] LABS: APPEARANCE,URINE CLEAR; BILIRUBIN,URINE NEGATIVE (NEGATIVE); COLOR,URINE STRAW; GLUCOSE, URINE NEGATIVE (NEGATIVE); KETONES,URINE NEGATIVE (NEGATIVE); LEUKOCYTE ESTERASE,URINE NEGATIVE (NEGATIVE); NITRITE,URINE NEGATIVE (NEGATIVE); PROTEIN,URINE NEGATIVE (NEGATIVE); URINE SPECIFIC GRAVITY 1.013; UROBILINOGEN,URINE NEGATIVE mg/dL (<2.0)
--- NOTE | 2019-01-04 08:59 | RADIOLOGY REPORT (SQ) ---
EXAM DESCRIPTION: CT CHEST WITH COMPLETED DATE/TIME: 01/04/2019 8:30 am REASON FOR STUDY: SOB with CP,O2 90-92 COMPARISON: None. TECHNIQUE: CT scan of the chest performed using helical scanning technique with dynamic intravenous contrast injection. Images reviewed with lung, soft tissue and bone windows. Reconstructed coronal and sagittal MPR and MIP images reviewed. All images stored on PACS. All CT scanners at this facility use dose modulation, iterative reconstruction, and/or weight based d osing when appropriate to reduce radiation dose to as low as reasonably achievable (ALARA). [facility]: Dose Right [facility]: CareDose [facility]: Dose Right [facility]: Teradose 4D [facility]: [employer] CONTRAST TYPE AND DOSE: contrast/concentration: Isovue 350.00 mg/ml; Total Contrast Delivered: 80.0 ml; Total Saline Delivered: 38.0 ml RENAL FUNCTION: GFR > 60. RADIATION DOSE: CT Rad equipment meets quality standard of care and radiation dose reduction techniq ues were employed. CTDIvol: 16.8 mGy. DLP: 725 mGy-cm. . LIMITATIONS: None. FINDINGS: LUNGS AND PLEURA: Dependent subsegmental airspace disease in the lingula and lower lobes m ost likely atelectasis. No infiltrate. No effusions. HILAR AND MEDIASTINAL STRUCTURES: No identified masses or abnormal nodes. HEART AND VASCULAR STRUCTURES: No aneurysm or dissection. No central pulmonary emboli. No pericardi al effusion. HARDWARE: None in the chest. UPPER ABDOMEN: No significant findings. Limited exam. THYROID AND OTHER SOFT TISSUES: No masses. No adenopathy. BONES: No significant finding. OTHER: No other significant finding. IMPRESSION: Atelectasis. No infiltrate. TECHNICAL DOCUMENTATION: JOB ID: [id number] Quality ID # [id number]: Final reports with documentation of one or more dose reduction techniques (e.g., Au tomated exposure control, adjustment of the mA and/or kV according to patient size, use of iterative reconstruction technique) 2010 [employer]- All Rights Reserved Reading location - IP/workstation name: [email or web address]
--- NOTE | 2019-01-04 09:06 | RADIOLOGY REPORT (SQ) ---
EXAM DESCRIPTION: CHEST 2 VIEWS COMPLETED DATE/TIME: 01/04/2019 7:44 am REASON FOR STUDY: cp COMPARISON: None. EXAM PARAMETERS: NUMBER OF VIEWS: two views TECHNIQUE: Digital Frontal and Lateral radiographic views of the chest acquired. RADIATION DOSE: NA LIMITATIONS: none FINDINGS: LUNGS AND PLEURA: No opacities, masses or pneumothorax. No pleural effusion. MEDIASTINUM AND HILAR STRUCTURES: No masses or contour abnormalities. HEART AND VASCULAR STRUCTURES: Heart normal size. No evidence for failure. BONES: No acute findings. HARDWARE: None in the chest. OTHER: No other significant finding. IMPRESSION: NO ACUTE RADIOGRAPHIC FINDING IN THE CHEST. TECHNICAL DOCUMENTATION: JOB ID: [id number] [employer]- All Rights Reserved Reading location - IP/workstation name: [email or web address]
[2019-01-04] MEDS ORDERED: ASPIRIN 81 MG TABLET, CHEWABLE PO ONE (09:20)
[2019-01-04] MEDS ORDERED: NITROGLYCERIN 0.4 MG/TAB 25 TAB/BOTTLE SL ONE (09:35)
[2019-01-04] MEDS ORDERED: KETOROLAC TROMETHAMINE INJ/PF 30 MG/1 ML SDV IV ONE (09:35)
[2019-01-04] MEDS ORDERED: NORMAL SALINE 1000 ML 1,000 ML IV PRN (09:36)
[2019-01-04] MEDS ORDERED: ACETAMINOPHEN 325 MG TABLET PO PRN (11:00)
[2019-01-04] MEDS ORDERED: HYDROCODONE/ACETAMINOPHEN 10-325 MG TABLET PO ONE (12:01)
--- NOTE | 2019-01-04 12:34 | EKG REPORT ---
SEVERITY:- BORDERLINE ECG - SINUS RHYTHM BORDERLINE T ABNORMALITIES, INFERIOR LEADS : Confirmed by: Monserrat Espinoza MD 04-Jan-2019 12:34:19
--- NOTE | 2019-01-04 14:53 | PDOC H&P ---
History of Present Illness Admission Date/PCP: 01/04/19 11:39 Patient complains of: chest pain History of Present Illness: NORMAN MIRELES is a 43 year old male presents to the ER with complaint of chest pain. Has been having intermittent chest pain for the past 2 days however this morning it was worse. Chest pain is worse with exertion. He states it radiates up to the head and the neck. He has been having some swelling in the neck and the shoulder. There is ago he underwent a cardiac catheterization. We will attempt to get the records. States that at that time his stress test was abnormal. Strong family history of cardiovascular disease. His mother was 53 when she from congestive heart failure. States that his chest pain was made better with nitroglycerin in the ER. 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 Chest pain was sharp in the center of his chest it did not radiate. Alleviated with nitro. He denies any nausea vomiting or diaphoresis at the time. Past Medical History Cardiac Medical History: Denies: Hypertension Pulmonary Medical History: Denies: Asthma, Bronchitis, Chronic Obstructive Pulmonary Disease (COPD) Neurological Medical History: Denies: Migraine, Seizures Endocrine Medical History: Denies: Diabetes Mellitus Type 1, Diabetes Mellitus Type 2 Renal/ Medical History: Denies: Chronic Kidney Disease GI Medical History: Denies: Hepatitis Musculoskeltal Medical History: Denies: Gout Psychiatric Medical History: Denies: Depression Past Surgical History Past Surgical History: Reports: Herniorrhaphy, Orthopedic Surgery - back, umbilical, double hernia, Social History Smoking Status: Current Every Day Smoker Drugs: None Family History Family History: CAD, Hypertension Parental Family History Reviewed: Yes Children Family History Reviewed: Yes Sibling(s) Family History Reviewed.: Yes Medication/Allergy Home Medications: Gabapentin [Gralise] 1,800 mg PO DAILY 01/04/19 Oxycodone HCl [Oxycontin] 40 mg PO Q12@0300,1500 01/04/19 Oxycodone HCl/Acetaminophen [Percocet 10-325 Mg Tablet] 1 each PO QID 01/04/19 Tizanidine HCl [Zanaflex 4 Mg Tablet] 12 mg PO QHS 01/04/19 Allergies/Adverse Reactions: Penicillins Allergy (Severe, Verified 03/29/18 16:58) Anaphylaxis Review of Systems Constitutional: PRESENT: fatigue, headache(s). ABSENT: chills, fever(s), night sweats, weakness Nose, Mouth, and Throat: ABSENT: sore throat Cardiovascular: PRESENT: palpitations. ABSENT: dyspnea on exertion, edema, orthropnea Respiratory: ABSENT: cough Gastrointestinal: ABSENT: abdominal pain, diarrhea, dysphagia, nausea, vomiting Musculoskeletal: ABSENT: back pain Neurological: ABSENT: focal weakness, lack of coordination, numbness Psychiatric: ABSENT: hallucinations Hematologic/Lymphatic: ABSENT: lymphadenopathy Physical Exam Vital Signs: Temp Pulse Resp BP Pulse Ox 97.8 F 84 12 128/68 H 92 01/04/19 06:36 01/04/19 06:36 01/04/19 13:01 01/04/19 13:00 01/04/19 13:01 Intake & Output 01/03/19 01/04/19 01/05/19 06:59 06:59 06:59 Weight 109.769 kg 120 kg General appearance: PRESENT: cooperative, mild distress, well-developed, well- nourished Eye exam: PRESENT: EOMI, PERRLA. ABSENT: scleral icterus Mouth exam: PRESENT: moist, neck supple Neck exam: ABSENT: carotid bruit, full ROM, JVD, lymphadenopathy, tenderness, thyromegaly, tracheal deviation Respiratory exam: PRESENT: unlabored. ABSENT: accessory muscle use, chest wall tenderness Cardiovascular exam: PRESENT: RRR. ABSENT: gallop, rubs GI/Abdominal exam: PRESENT: normal bowel sounds, soft. ABSENT: ascites, tenderness Musculoskeletal exam: ABSENT: tenderness Neurological exam: PRESENT: alert, oriented to person, oriented to place, oriented to time, oriented to situation Psychiatric exam: PRESENT: anxious Skin exam: PRESENT: dry, normal color, warm. ABSENT: cyanosis Results Laboratory Results: 01/04/19 07:13 01/04/19 07:13 01/04/19 01/04/19 01/04/19 07:13 07:13 07:13 WBC 7.1 RBC 4.93 Hgb 15.4 Hct 43.8 MCV 89 MCH 31.1 MCHC 35.0 RDW 13.2 Plt Count 173 Seg Neutrophils % 65.6 Lymphocytes % 22.1 Monocytes % 7.6 Eosinophils % 3.8 Basophils % 0.9 Absolute Neutrophils 4.7 Absolute Lymphocytes 1.6 Absolute Monocytes 0.5 Absolute Eosinophils 0.3 Absolute Basophils 0.1 Sodium 144.6 Potassium 4.5 Chloride 103 Carbon Dioxide 31 H Anion Gap 11 BUN 17 Creatinine 0.84 Est GFR ( Amer) > 60 Est GFR (Non-Af Amer) > 60 Glucose 94 Calcium 9.8 Phosphorus 3.7 Magnesium 2.0 Total Bilirubin 0.5 AST 43 ALT 47 Alkaline Phosphatase 64 Total Protein 7.5 Albumin 4.6 Lipase 71.1 Urine Color Urine Appearance Urine pH Ur Specific [place] Urine Protein Urine Glucose (UA) Urine Ketones Urine Blood Urine Nitrite Ur Leukocyte Esterase Urine WBC (Auto) Urine RBC (Auto) 01/04/19 07:50 WBC RBC Hgb Hct MCV MCH MCHC RDW Plt Count Seg Neutrophils % Lymphocytes % Monocytes % Eosinophils % Basophils % Absolute Neutrophils Absolute Lymphocytes Absolute Monocytes Absolute Eosinophils Absolute Basophils Sodium Potassium Chloride Carbon Dioxide Anion Gap BUN Creatinine Est GFR ( Amer) Est GFR (Non-Af Amer) Glucose Calcium Phosphorus Magnesium Total Bilirubin AST ALT Alkaline Phosphatase Total Protein Albumin Lipase Urine Color STRAW Urine Appearance CLEAR Urine pH 6.0 Ur Specific [place] 1.013 Urine Protein NEGATIVE Urine Glucose (UA) NEGATIVE Urine Ketones NEGATIVE Urine Blood LARGE H Urine Nitrite NEGATIVE Ur Leukocyte Esterase NEGATIVE Urine WBC (Auto) 1 Urine RBC (Auto) 12 01/04/19 01/04/19 01/04/19 07:13 07:13 07:13 Creatine Kinase 208 H CK-MB (CK-2) 1.79 Troponin I < 0.012 NT-Pro-B Natriuret Pep 15 01/04/19 13:04 Creatine Kinase CK-MB (CK-2) Troponin I < 0.012 NT-Pro-B Natriuret Pep Impressions: Chest X-Ray 01/04/19 06:40 IMPRESSION: NO ACUTE RADIOGRAPHIC FINDING IN THE CHEST. Chest CT 01/04/19 07:33 IMPRESSION: Atelectasis. No infiltrate. Assessment & Plan - Diagnosis (1) Chest pain Is this a current diagnosis for this admission?: Yes Plan: Will refer patient to outpatient observation rule out my with serial troponins. Discussed with cardiology and will get a stress test on the patient tomorrow. (2) Supplemental oxygen dependent Is this a current diagnosis for this admission?: Yes Plan: 2 L of oxygen via nasal cannula for now. (3) Intractable back pain Is this a current diagnosis for this admission?: Yes Plan: We will continue patient's home medication regimen. - Time Time Spent: 30 to 50 Minutes Medications reviewed and adjusted accordingly: Yes Anticipated discharge: Home
[2019-01-04] MEDS ORDERED: (PENDING PHARMACY ID) (Oxycodone Hcl [Oxycontin] 40 MG) PO SCH (15:00)
[2019-01-04] MEDS ORDERED: OXYCODONE HCL SR 40 MG TABLET PO ONE (16:30)
[2019-01-04] MEDS: OXYCODONE HCL IR 5 MG TABLET PO SCH ×2 (17:34→23:06)
[2019-01-04] MEDS: OXYCODONE-ACETAMINOPHEN 5-325 MG TABLET PO SCH ×2 (17:34→23:05)
[2019-01-04] MEDS ORDERED: (PENDING PHARMACY ID) (Oxycodone Hcl/Acetaminophen [Percocet 10-325 Mg Tablet] 1 EACH) PO SCH (18:00)
[2019-01-04] MEDS ORDERED: FUROSEMIDE INJ/PF 20 MG/2 ML SDV IV ONE (20:00)
[2019-01-04] MEDS ORDERED: GRALISE 600 MG PO SCH (20:00)
[2019-01-04] MEDS ORDERED: TIZANIDINE HCL 4 MG TABLET PO SCH (22:00)
[2019-01-05] MEDS ORDERED: GRALISE 600 MG PO SCH (03:00)
[2019-01-05] MEDS: OXYCODONE HCL SR 40 MG TABLET PO SCH ×2 (03:32→14:57)
[2019-01-05] MEDS: OXYCODONE HCL IR 5 MG TABLET PO SCH ×2 (05:13→12:02)
[2019-01-05] MEDS: OXYCODONE-ACETAMINOPHEN 5-325 MG TABLET PO SCH ×2 (05:14→12:02)
[2019-01-05 08:27] LABS: ABSOLUTE BASOPHILS # (AUTO) 0.1 10^3/uL (0.0-0.2); ABSOLUTE EOSINOPHILS # (AUTO) 0.3 10^3/uL (0.0-0.6); ABSOLUTE LYMPHOCYTES (AUTO) 1.5 10^3/uL (0.5-4.7); ABSOLUTE MONOCYTES (AUTO) 0.5 10^3/uL (0.1-1.4); ABSOLUTE NEUT (AUTO) 4.3 10^3/uL (1.7-8.2); BASOPHILS % (AUTO) 0.9 % (0-2); EOSINOPHILS % (AUTO) 4.4 % (0-6); HEMATOCRIT 42.7 % (37.9-51.0); HEMOGLOBIN 14.9 g/dL (13.5-17.0); LYMPHOCYTES % (AUTO) 22.8 % (13-45); MEAN CORPUSCULAR HEMOGLOBIN 31.4 pg (27.0-33.4); MEAN CORPUSCULAR VOLUME 90 fl (80-97); MONOCYTES % (AUTO) 7.3 % (3-13); PLATELET COUNT 150 10^3/uL (150-450); RED BLOOD COUNT 4.76 10^6/uL (4.35-5.55); RED CELL DISTRIBUTION WIDTH 13.6 % (11.5-14.0); SEGMENTED NEUTROPHILS % (AUTO) 64.6 % (42-78); TOTAL CELLS COUNTED % (AUTO) 100 %; WHITE BLOOD COUNT 6.6 10^3/uL (4.0-10.5)
[2019-01-05 09:05] LABS: ALANINE AMINOTRANSFERASE 51 U/L (21-72); ALBUMIN 3.7 g/dL (3.5-5.0); ALKALINE PHOSPHATASE 65 U/L (38-126); ANION GAP 7 (5-19); ASPARTATE AMINO TRANSFERASE 28 U/L (17-59); BILIRUBIN,DIRECT 0.2 mg/dL (0.0-0.4); BILIRUBIN,TOTAL 0.3 mg/dL (0.2-1.3); CALCIUM 8.9 mg/dL (8.4-10.2); CARBON DIOXIDE 31 mmol/L (22-30); CHLORIDE 103 mmol/L (98-107); GLUCOSE 97 mg/dL (75-110); POTASSIUM 4.3 mmol/L (3.6-5.0); SODIUM 140.6 mmol/L (137-145); TOTAL PROTEIN 6.3 g/dL (6.3-8.2)
[2019-01-05 09:06] LABS: BLOOD UREA NITROGEN 20 mg/dL (7-20)
[2019-01-05] MEDS ORDERED: ENOXAPARIN SODIUM INJ 40 MG/0.4 ML DISP.SYRIN SUBCUT SCH (10:00)
[2019-01-05] MEDS ORDERED: (PENDING PHARMACY ID) (Gabapentin [Gralise] 1,800 MG) PO SCH (10:00)
[2019-01-05] MEDS ORDERED: REGADENOSON INJ 0.4 MG/5 ML DISP.SYRIN IV ONE (11:54)
[2019-01-05 16:22] VITALS: BP 136/88
[2019-01-05] MEDS ORDERED: AMLODIPINE BESYLATE 2.5 MG TABLET PO SCH (22:00)
--- NOTE | 2019-01-05 22:21 | DRAGON STRESS TEST REPORT ---
Intravenous Lexiscan Cardiolite stress test using single photon emmision computerized tomography. Date of procedure: 01/05/2019. Ordering Provider: MAYELA Steven. Patient's status: In Patient. Indication: Chest pain. Coronary risk factors: Age, and family history of coronary artery disease. Resting EKG: Sinus Rhythm. Nonspecific T changes, minor and diffuse. Stress EKG[ No changes of ischemia. The patient had no chest pain or discomfort, and there were no arrhythmias seen. He had transient headache which subsided with the patient drinking Coca-[employer]a. Reason for termination: Protocol. Conclusions: Normal EKG and hemodynamic response to IV Lexiscan. Nuclear data: At rest the patient was given 15.84 millicuries of technetium 99m sestamibi injected intravenously. As per protocol rest non gated SPECT images were obtained. Subsequently the patient was given intravenous Lexiscan at a dose of 0.4 mg in 5 mL intravenously, followed by flush with normal saline. Subsequently the stress dose of 45.9 millicuries of technetium 99m sestamibi was injected intravenously. As per protocol stress gated images were obtained. Nuclear interpretation: Review of images showed that all segments of the myocardium had normal perfusion at rest, and normal perfusion post stress with IV Lexiscan. All segments of the myocardium had normal motion, contraction, and thickening by gated study. T. I D. ratio was normal at 1.14. There is no transient ischemic dilatation of the left ventricle. Computer read rest, and stress left ventricular ejection fraction were 58 %, and 55 %, respectively. Visually both the stress and rest ejection fractions were normal, and greater than 55%. Conclusion: 1. There is no scintigraphic evidence of Lexiscan induced myocardial ischemia. 2. There is no scintigraphic evidence of myocardial infarction/scar. Recommendations: Aggressive risk factor modification, and treating the underlying co- morbidities. MTDD
== END 2019-01-05 17:15 | disposition home or self-care (01) ==
LOC: ER 06:35 → EH 11:39 → 4S 15:58
PROVIDERS: ADMIT Internal Medicine; ATTEND Internal Medicine
DX: R07.9 Chest pain, unspecified (principal); M54.89 Other dorsalgia; F17.200 Nicotine dependence, unspecified, uncomplicated; M79.602 Pain in left arm; R06.02 Shortness of breath; J98.4 Other disorders of lung; R42 Dizziness and giddiness; I20.0 Unstable angina; R22.1 Localized swelling, mass and lump, neck; R22.2 Localized swelling, mass and lump, trunk; R53.83 Other fatigue; R51 Headache; R00.2 Palpitations; Z82.49 Family history of ischemic heart disease and other diseases of the circulatory system; Z79.899 Other long term (current) drug therapy; Z99.81 Dependence on supplemental oxygen; Z98.1 Arthrodesis status; Z98.890 Other specified postprocedural states
CPT/HCPCS: 93005; 99285; 96361; 96374; 36415 ×2; 82553; 82550; 83690; 83735 ×2; 84100; 84443; 85025 ×2; 85610; 80053 ×2; 81001; 84484 ×2; 83880; 93017; 71046; 78452; 71260; 93010; A9500; J2785; J3490; J1940; J1885; J7030; Q9969; G0378

== ENCOUNTER 2019-04-09 17:04 | Emergency (ER) | payer OTHER ==
--- NOTE | 2019-04-09 17:46 | ER Document Report ---
ED Medical Screen (RME) - General Chief Complaint: Dizziness Stated Complaint: DIZZY Time Seen by Provider: 04/09/19 17:40 TRAVEL OUTSIDE OF THE [place] IN LAST 30 DAYS: No - HPI Notes: 04/09/19 17:42 Patient is a 43-year-old male with a history of hypertension and back surgeries who presents per the direction of Dr. Pappas for progressive headache, dizziness, ataxia, excessive fatigue, and chest pain. Patient states he has been having all of the symptoms for the past 2 to 3 months. Patient states that when he is driving he will start swerving for all the lanes and not realize it. Patient describes this as disorientation. Patient states that he also will not remember some phone calls and discussions that he has had with his . Patient states that his symptoms are intermittent and were worse about an hour ago, but have somewhat improved. Dr. Pappas states that he has had an unremarkable cardiac work-up in December and in his office today, but would still like cardiac enzymes and evaluation for his dizziness with a CT brain with contrast. He is scheduled for heart catheterization tomorrow with [facility]. Denies fever, neck pain, URI, SOB, Abd pain, dysuria, or rash. I have treated and performed a rapid initial assessment of this patient. A comprehensive ED assessment and evaluation of the patient, analysis of test results and completion of medical decision making process will be conducted by additional ED providers. PHYSICAL EXAMINATION: GENERAL: Well-appearing, well-nourished and in no acute distress. A&Ox4. Answers questions appropriately. HEAD: Atraumatic, normocephalic. Non-tender. EYES: Pupils equal round and reactive to light, extraocular movements intact, sclera anicteric, conjunctiva are normal. No nystagmus. NECK: Normal range of motion, supple without lymphadenopathy. No rigidity/meningismus. No midline tenderness. LUNGS: Breath sounds clear to auscultation bilaterally and equal. No wheezes rales or rhonchi. HEART: Regular rate and rhythm without murmurs, rubs, gallops. Musculoskeletal: Ext b/l: FROM to passive/active. Strength 5+/5. No deficits noted. Extremities: Trace pitting b/l LE's. NEUROLOGICAL: NIH 0. GCS 15. Cranial nerves grossly intact. Normal speech, somewhat ataxic gait, but negative romberg. Normal sensory, motor exams. Reflexes 2+ b/l. MORA's negative. Pronator drift negative. Heel/hart, finger/nose wnl. PSYCH: flat affect SKIN: Warm, Dry, normal turgor, no rashes or lesions noted. - Related Data Allergies/Adverse Reactions: Penicillins Allergy (Severe, Verified 04/09/19 17:05) Anaphylaxis Past Medical History - Social History Chew tobacco use (# tins/day): No - Past Medical History Cardiac Medical History: Denies: Hx Hypertension Pulmonary Medical History: Denies: Hx Asthma, Hx Bronchitis, Hx COPD Neurological Medical History: Denies: Hx Migraine, Hx Seizures Endocrine Medical History: Denies: Hx Diabetes Mellitus Type 1, Hx Diabetes Mellitus Type 2 Renal/ Medical History: Denies: Hx Peritoneal Dialysis GI Medical History: Denies: Hx Hepatitis Musculoskeltal Medical History: Denies Hx Gout, Reports Hx Musculoskeletal Deformity, Reports Hx Musculoskeletal Trauma Psychiatric Medical History: Denies: Hx Depression Infectious Medical History: Denies: Hx Hepatitis Past Surgical History: Reports: Hx Herniorrhaphy, Hx Orthopedic Surgery - back, umbilical, double hernia, - Immunizations History of Influenza Vaccine for 07/2017 - 12/2017 Season: Refused
--- NOTE | 2019-04-09 17:59 | RADIOLOGY REPORT (SQ) ---
EXAM DESCRIPTION: CHEST SINGLE VIEW COMPLETED DATE/TIME: 04/09/2019 5:51 pm REASON FOR STUDY: CP COMPARISON: 01/04/2019 EXAM PARAMETERS: NUMBER OF VIEWS: One view. TECHNIQUE: Single frontal radiographic view of the chest acquired. RADIATION DOSE: NA LIMITATIONS: None. FINDINGS: LUNGS AND PLEURA: No opacities, masses or pneumothorax. No pleural effusion. MEDIASTINUM AND HILAR STRUCTURES: No masses. Contour normal. HEART AND VASCULAR STRUCTURES: Heart normal in size. Normal vasculature. BONES: No acute findings. HARDWARE: None in the chest. OTHER: No other significant finding. IMPRESSION: NO ACUTE RADIOGRAPHIC FINDING IN THE CHEST. TECHNICAL DOCUMENTATION: JOB ID: [id number] [employer]- All Rights Reserved Reading location - IP/workstation name: [email or web address]
[2019-04-09 19:12] LABS: ABSOLUTE BASOPHILS # (AUTO) 0.1 10^3/uL (0.0-0.2); ABSOLUTE EOSINOPHILS # (AUTO) 0.2 10^3/uL (0.0-0.6); ABSOLUTE LYMPHOCYTES (AUTO) 1.9 10^3/uL (0.5-4.7); ABSOLUTE MONOCYTES (AUTO) 0.6 10^3/uL (0.1-1.4); ABSOLUTE NEUT (AUTO) 5.3 10^3/uL (1.7-8.2); BASOPHILS % (AUTO) 0.8 % (0-2); EOSINOPHILS % (AUTO) 1.9 % (0-6); HEMATOCRIT 41.4 % (37.9-51.0); HEMOGLOBIN 14.1 g/dL (13.5-17.0); MEAN CORPUSCULAR HEMOGLOBIN 30.9 pg (27.0-33.4); MEAN CORPUSCULAR VOLUME 91 fl (80-97); MONOCYTES % (AUTO) 6.9 % (3-13); PLATELET COUNT 195 10^3/uL (150-450); RED BLOOD COUNT 4.56 10^6/uL (4.35-5.55); RED CELL DISTRIBUTION WIDTH 13.6 % (11.5-14.0); SEGMENTED NEUTROPHILS % (AUTO) 66.4 % (42-78); TOTAL CELLS COUNTED % (AUTO) 100 %
[2019-04-09 19:28] LABS: ALANINE AMINOTRANSFERASE 51 U/L (21-72); ALBUMIN 4.1 g/dL (3.5-5.0); ALKALINE PHOSPHATASE 72 U/L (38-126); ANION GAP 8 (5-19); ASPARTATE AMINO TRANSFERASE 25 U/L (17-59); BILIRUBIN,DIRECT 0.2 mg/dL (0.0-0.4); BILIRUBIN,TOTAL 0.3 mg/dL (0.2-1.3); BLOOD UREA NITROGEN 17 mg/dL (7-20); CALCIUM 9.1 mg/dL (8.4-10.2); CARBON DIOXIDE 31 mmol/L (22-30); CHLORIDE 105 mmol/L (98-107); GLUCOSE 88 mg/dL (75-110); SODIUM 143.5 mmol/L (137-145); TOTAL PROTEIN 6.7 g/dL (6.3-8.2)
[2019-04-09 19:35] VITALS: BP 127/91
[2019-04-09 19:40] LABS: NT PRO BNP 24 pg/mL (<125); TROPONIN I < 0.012 ng/mL
--- NOTE | 2019-04-09 19:46 | ER Document Report ---
ED General - General Chief Complaint: Dizziness Stated Complaint: DIZZY Time Seen by Provider: 04/09/19 17:40 Primary Care Provider: ALEN HERRERA MD [Primary Care Provider] - Follow up as needed Notes: Patient is a 43-year-old male with a history of hypertension and back surgeries who presents per the direction of Dr. Pappas for progressive headache, dizziness, ataxia, excessive fatigue, and chest pain. Patient states he has been having all of the symptoms for the past 2 to 3 months. Patient states that when he is driving he will start swerving for all the lanes and not realize it. Patient describes this as disorientation. Patient states that he also will not remember some phone calls and discussions that he has had with his . Patient states that his symptoms are intermittent and were worse about an hour ago, but have somewhat improved. No obvious exacerbating or alleviating factor. Regards symptoms as being severe and intermittent. The patient does admit that he sleeps only 5 to 5-1/2 hours maximally at night with a CPAP. Patient also continues to take OxyContin 40 mg twice daily as well as Percocet 10 mg 4 times daily although denies any recent changes in these medications. Dr. Pappas states that he has had an unremarkable cardiac work-up in December and in his office today, but would still like cardiac enzymes and evaluation for his dizziness with a CT brain with contrast. He is scheduled for heart catheterization tomorrow with [facility]. Denies fever, neck pain, URI, SOB, Abd pain, dysuria, or rash. TRAVEL OUTSIDE OF THE [place] IN LAST 30 DAYS: No - Related Data Allergies/Adverse Reactions: Penicillins Allergy (Severe, Verified 04/09/19 17:05) Anaphylaxis Past Medical History - General Information source: Patient - Social History Smoking Status: Current Every Day Smoker Chew tobacco use (# tins/day): No Frequency of alcohol use: None Drug Abuse: None Lives with: Spouse/Significant other Family History: Reviewed & Not Pertinent Patient has suicidal ideation: No Patient has homicidal ideation: No - Past Medical History Cardiac Medical History: Denies: Hx Hypertension Pulmonary Medical History: Denies: Hx Asthma, Hx Bronchitis, Hx COPD Neurological Medical History: Denies: Hx Migraine, Hx Seizures Endocrine Medical History: Denies: Hx Diabetes Mellitus Type 1, Hx Diabetes Mellitus Type 2 Renal/ Medical History: Denies: Hx Peritoneal Dialysis GI Medical History: Denies: Hx Hepatitis Musculoskeletal Medical History: Denies Hx Gout, Reports Hx Musculoskeletal Deformity, Reports Hx Musculoskeletal Trauma Psychiatric Medical History: Denies: Hx Depression Infectious Medical History: Denies: Hx Hepatitis Past Surgical History: Reports: Hx Herniorrhaphy, Hx Orthopedic Surgery - back, umbilical, double hernia, Review of Systems - Review of Systems Notes: Constitutional: Negative for fever. Positive for general fatigue HENT: Negative for sore throat. Eyes: Negative for visual changes. Cardiovascular: Positive for intermittent chest pain Respiratory: Negative for shortness of breath. Gastrointestinal: Negative for abdominal pain, vomiting or diarrhea. Genitourinary: Negative for dysuria. Musculoskeletal: Negative for back pain. Skin: Negative for rash. Neurological: Negative for headaches, weakness or numbness. 10 point ROS negative except as marked above and in HPI. Physical Exam - Vital signs Vitals: Pulse Ox 96 04/09/19 17:40 Interpretation: Normal Notes: PHYSICAL EXAMINATION: GENERAL: Well-appearing, well-nourished and in no acute distress. HEAD: Atraumatic, normocephalic. EYES: Pupils equal round and reactive to light, extraocular movements intact, sclera anicteric, conjunctiva are normal. ENT: nares patent, oropharynx clear without exudates. Moist mucous membranes. NECK: Normal range of motion, supple without lymphadenopathy LUNGS: Breath sounds clear to auscultation bilaterally and equal. No wheezes rales or rhonchi. HEART: Regular rate and rhythm without murmurs ABDOMEN: Soft, nontender, normoactive bowel sounds. No guarding, no rebound. No masses appreciated. EXTREMITIES: Normal range of motion, no pitting or edema. No cyanosis. NEUROLOGICAL: Face symmetric. Tongue protrudes midline. Extraocular motions intact. Pupils are 2 mm and equally reactive. Normal speech, normal gait. 5 out of 5 strength in both the distal and proximal upper and lower extremities bilaterally. Sensation is grossly intact throughout. Finger to nose testing normal. Pronator drift normal. PSYCH: Normal mood, normal affect. SKIN: Warm, Dry, normal turgor, no rashes or lesions noted. Course - Re-evaluation Re-evalutation: 04/09/19 19:44 Patient presents with signs and symptoms that appear to be most consistent with either inadequate sleep versus possible overdosing of narcotics. The patient does not characterize symptoms that would be consistent with seizures, stroke, TIA, or encephalopathy. Symptoms come and go, and long-term and duration do not suspect something such as meningitis, encephalitis. CT head with contrast obt ained per direction of referring physician does not demonstrate any evidence of intracranial mass or lesion. Labs likewise broadly unremarkable and do not suggest evidence of thyroid dysfunction, renal dysfunction, liver dysfunction or electrode imbalances. Patient is not anemic. I had a long conversation with the patient and his about my concerns of the very high dosing of narcotic pain medications that he is on as well as the fact that he is driving while taking these medications. I have advised the patient that he should not all be driving when he is taken these medications on a daily basis. I have also advised that the patient needs to be sleeping more than 5 hours per night and that this could also be contributing to his symptoms. I have likewise advised the patient can needs to continue following through with the scheduled work-ups for a cardiac catheterization to definitively exclude coronary artery disease with atypical anginal presentations as the cause of his symptoms. I have also advised to follow-up with neurology for further evaluation with possibly EEG and MRI again to definitively exclude unlikely but not impossible diagnoses such as brief absence seizures, neurodegenerative conditions. At this time will discharge with return precautions and follow-up recommendations. Verbal discharge instructions given a the bedside and opportunity for questions given. Medication warnings reviewed. Patient is in agreement with this plan and has verbalized understanding of return precautions and the need for primary care follow-up in the next 24-72 hours. - Vital Signs Vital signs: Temp Pulse Resp BP Pulse Ox 14 127/91 H 96 04/09/19 19:01 04/09/19 19:00 04/09/19 19:01 - Laboratory Result Diagrams: 04/09/19 18:49 04/09/19 18:49 Laboratory results interpreted by me: 04/09/19 18:49 Carbon Dioxide 31 H - Diagnostic Test Radiology reviewed: Image reviewed, Reports reviewed Radiology results interpreted by me: 04/09/19 20:31 CT head: No acute intracranial bleed or mass Chest x-ray: No acute infiltrate - EKG Interpretation by Me Additional EKG results interpreted by me: 04/09/19 20:31 Sinus rhythm, rate 67, no ST elevations or depressions. QTC is 410. Discharge - Discharge Clinical Impression: Disorientation, Intermittent chest pain Fatigue Qualifiers: Fatigue type: unspecified Qualified Code(s): R53.83 - Other fatigue Condition: Good Disposition: HOME, SELF-CARE Additional Instructions: Your work-up today is reassuring. No obvious cause of your symptoms is found. Please follow-up as scheduled tomorrow for your cardiac catheterization. As we discussed I have a strong suspicion that your symptoms could be related to your narcotic pain medications or from inadequate sleep. I advised her to begin sleeping more and discuss with your pain management doctor regarding coming down on your narcotic pain medications. I also feel that she needs to see a neurolo gist and have a full neurologic assessment for any alternative potential cause of your symptoms today. Return if you develop an episode of passing out, fever greater 100.4 F, focal weakness, numbness, confusion or any other symptoms that are worrisome to you. Referrals: ALEN HERRERA MD [Primary Care Provider] - Follow up as needed
--- NOTE | 2019-04-09 20:08 | RADIOLOGY REPORT (SQ) ---
CT HEAD WITH IV CONTRAST HISTORY: Altered mental status. COMPARISON: None. TECHNIQUE: CT scan of the brain without IV contrast. This exam was performed according to our departmental dose-optimization program, which includes automated exposure control, adjustment of the mA and/or kV according to patient size and/or use of iterative reconstruction technique. FINDINGS: The ventricles, cisterns, and sulci are age-appropriate. No evidence of acute infarction, intracranial hemorrhage, extra-axial fluid collection, or midline shift. No air-fluid levels are seen in the paranasal sinuses to suggest acute sinusitis. No depressed skull fracture. IMPRESSION: No acute intracranial findings.
== END 2019-04-09 21:18 | disposition home or self-care (01) ==
LOC: ER 17:04
DX: R41.0 Disorientation, unspecified (principal); R07.9 Chest pain, unspecified; R53.83 Other fatigue; R42 Dizziness and giddiness; R51 Headache; I10 Essential (primary) hypertension; F17.200 Nicotine dependence, unspecified, uncomplicated
CPT/HCPCS: 36415; 70460; 71045; 80053; 83735; 83880; 84443; 84484; 85025; 99281

== ENCOUNTER 2020-02-08 07:00 | Emergency (ER) | payer OTHER ==
[2020-02-08] MEDS ORDERED: ONDANSETRON HCL INJ/PF 4 MG/2 ML SDV IV ONE (08:25)
[2020-02-08] MEDS ORDERED: FENTANYL CITRATE INJ/PF 100 MCG/2 ML AMPUL IV ONE (08:25)
[2020-02-08] MEDS ORDERED: NORMAL SALINE 1000 ML 1,000 ML IV ONE (08:25)
--- NOTE | 2020-02-08 08:27 | ER Document Report ---
ED GI/ - General Chief Complaint: Upper Abdominal Pain Stated Complaint: STOMACH PAIN Time Seen by Provider: 02/08/20 08:13 Primary Care Provider: CRESCENCIO FLORES MD [ACTIVE STAFF] - Follow up as needed ALEN HERRERA MD [Primary Care Provider] - Follow up as needed LINDSAY MONTANEZ MD [ACTIVE STAFF] - Follow up as needed ALEXA LOPEZ MD [ACTIVE STAFF] - Follow up as needed Mode of Arrival: Ambulatory Information source: Patient Notes: Patient presents with epigastric pain that started yesterday and worsened today. Patient does report nausea without any vomiting. Patient denies any fever cough or urinary symptoms. Patient states that he did have an episode where he became clammy at home. TRAVEL OUTSIDE OF THE [place] IN LAST 30 DAYS: No - HPI Patient complains to provider of: Abdominal pain. No: Vomiting Onset: Yesterday Timing/Duration: Persistent, Worse Quality of pain: Sharp Pain Level: 5 Location: Epigastric Sexual history: Active Associated symptoms: Nausea. denies: Chest pain, Chills, Diarrhea, Dizzy, Dysuria, Fever, Urinary hesitancy, Urinary frequency, Urinary retention, Urinary urgency Exacerbated by: Movement Relieved by: Denies Similar symptoms previously: No Recently seen / treated by doctor: No - Related Data Allergies/Adverse Reactions: Penicillins Allergy (Severe, Verified 04/09/19 17:05) Anaphylaxis Home Medications: Buimorphine Past Medical History - General Information source: Patient - Social History Smoking Status: Current Every Day Smoker Chew tobacco use (# tins/day): No Frequency of alcohol use: Rare Drug Abuse: None Lives with: Family Family History: Reviewed & Not Pertinent Patient has suicidal ideation: No Patient has homicidal ideation: No - Past Medical History Cardiac Medical History: Denies: Hx Hypertension Pulmonary Medical History: Denies: Hx Asthma, Hx Bronchitis, Hx COPD EENT Medical History: Reports: Other - Seasonal allergies Neurological Medical History: Denies: Hx Migraine, Hx Seizures Endocrine Medical History: Denies: Hx Diabetes Mellitus Type 1, Hx Diabetes Mellitus Type 2 Renal/ Medical History: Denies: Hx Peritoneal Dialysis GI Medical History: Denies: Hx Gastritis, Hx Gastroesophageal Reflux Disease, Hx Hepatitis, Hx Pancreatitis Musculoskeletal Medical History: Denies Hx Gout, Reports Hx Musculoskeletal Deformity, Reports Hx Musculoskeletal Trauma Psychiatric Medical History: Denies: Hx Depression Infectious Medical History: Denies: Hx Hepatitis Past Surgical History: Reports: Hx Herniorrhaphy, Hx Inguinal Hernia, Hx Orthopedic Surgery - back, umbilical, double hernia,, Hx Umbilical Hernia Review of Systems - Review of Systems Constitutional: No symptoms reported. denies: Chills, Fever EENT: No symptoms reported Cardiovascular: No symptoms reported. denies: Chest pain Respiratory: No symptoms reported. denies: Cough, Short of breath Gastrointestinal: Abdominal pain, Nausea. denies: Diarrhea, Vomiting, Poor appetite Genitourinary: No symptoms reported. denies: Dysuria, Flank pain Male Genitourinary: No symptoms reported Musculoskeletal: No symptoms reported. denies: Back pain Skin: No symptoms reported Hematologic/Lymphatic: No symptoms reported Neurological/Psychological: No symptoms reported Physical Exam - Vital signs Vitals: Temp Pulse Resp BP Pulse Ox 97.3 F 67 18 137/84 H 99 02/08/20 07:08 02/08/20 07:08 02/08/20 07:08 02/08/20 07:08 02/08/20 07:08 - General General appearance: Alert In distress: Mild - HEENT Head: Normocephalic, Atraumatic Eyes: Normal Conjunctiva: Normal Nasal: Normal Mouth/Lips: Normal Mucous membranes: Normal Neck: Normal, Supple. No: Lymphadenopathy - Respiratory Respiratory status: No respiratory distress Chest status: Nontender Breath sounds: Normal. No: Rales, Rhonchi, Stridor, Wheezing Chest palpation: Normal - Cardiovascular Rhythm: Regular Heart sounds: S1 appreciated, S2 appreciated Murmur: No - Abdominal Inspection: Normal Distension: No distension Bowel sounds: Normal Tenderness: Tender - epigastric Organomegaly: No organomegaly - Back Back: Normal, Nontender. No: CVA tenderness - Extremities General upper extremity: Normal inspection, Normal strength General lower extremity: Normal inspection, Normal strength - Neurological Neuro grossly intact: Yes Cognition: Normal [place] Coma Scale Eye Opening: Spontaneous [place] Coma Scale Verbal: Oriented [place] Coma Scale Motor: Obeys Commands [place] Coma Scale Total: 15 - Psychological Associated symptoms: Normal affect, Normal mood - Skin Skin Temperature: Warm Skin Moisture: Dry Skin Color: Normal Course - Re-evaluation Re-evalutation: 02/08/20 10:22 Patient states that pain continues to come and go. Patient continues with epigastric tenderness at this time. Ultrasound reviewed, no concern for cholecystitis or any obvious biliary obstruction. Patient with mild leukocytosis although this could be attributed to his vomiting. Will add GI cocktail and reevaluate at this time. 02/08/20 11:[address] Conn regarding patient presentation and diagnostic evaluation. Patient reports that the abdominal pain temporarily resolved after the GI cocktail but states that the pain is started to return although is mild in nature at this time. Dr. Conn recommends giving good return precautions and treating patient symptomatically. Does not recommend any additional imaging at this time. Patient presents with abdominal pain without signs of peritonitis or other life-threatening or serious etiology. Patient appears stable for discharge and has been instructed to return immediately if the symptoms worsen in any way. - Vital Signs Vital signs: Temp Pulse Resp BP Pulse Ox 97.7 F 58 L 20 109/68 97 02/08/20 11:26 02/08/20 11:26 02/08/20 11:26 02/08/20 11:26 02/08/20 11:26 - Laboratory Result Diagrams: 02/08/20 08:15 02/08/20 08:15 Laboratory results interpreted by me: 02/08/20 02/08/20 02/08/20 08:15 08:15 09:52 WBC 11.9 H Lymph % (Auto) 10.8 L Absolute Neuts (auto) 9.9 H Seg Neutrophils % 82.8 H Carbon Dioxide 32 H Anion Gap 4 L Urine Blood LARGE H - Diagnostic Test Radiology reviewed: Reports reviewed - EKG Interpretation by Ct EKG shows normal: Sinus rhythm Rate: Normal When compared to previous EKG there are: No significant change Additional EKG results interpreted by me: 02/08/20 11:[address] elevation, QTc 405 Discharge - Discharge Clinical Impression: Nausea Gastritis Qualifiers: Gastritis type: unspecified gastritis Chronicity: acute Gastritis bleeding: without bleeding Qualified Code(s): K29.00 - Acute gastritis without bleeding Abdominal pain Qualifiers: Abdominal location: epigastric Qualified Code(s): R10.13 - Epigastric pain Condition: Stable Disposition: HOME, SELF-CARE Instructions: Abdominal Pain ([facility]), Antinausea Medication ([facility]), Gastritis ([facility]) Additional Instructions: Return immediately for any new or worsening symptoms Followup with your primary care provider, call tomorrow to make a followup appointment Follow-up with a clinical haematologist for further evaluation, call today to make a follow-up appointment Prescriptions: Sucralfate [Carafate 1 gm Tablet] 1 gm PO ACHS #40 tablet Omeprazole Magnesium [Prilosec Otc] 20 mg PO DAILY #15 tablet. Ondansetron [Zofran Odt 4 mg Tablet] 1 tab PO Q6H #15 tab.rapdis Referrals: ALEN HERRERA MD [Primary Care Provider] - Follow up as needed ALEXA LOPEZ MD [ACTIVE STAFF] - Follow up as needed LINDSAY MONTANEZ MD [ACTIVE STAFF] - Follow up as needed CRESCENCIO FLORES MD [ACTIVE STAFF] - Follow up as needed
[2020-02-08 08:45] LABS: ABSOLUTE EOSINOPHILS # (AUTO) 0.1 10^3/uL (0.0-0.6); ABSOLUTE LYMPHOCYTES (AUTO) 1.3 10^3/uL (0.5-4.7); ABSOLUTE MONOCYTES (AUTO) 0.6 10^3/uL (0.1-1.4); ABSOLUTE NEUT (AUTO) 9.9 10^3/uL (1.7-8.2); BASOPHILS % (AUTO) 0.4 % (0-2); EOSINOPHILS % (AUTO) 0.9 % (0-6); HEMATOCRIT 48.1 % (37.9-51.0); HEMOGLOBIN 16.6 g/dL (13.5-17.0); LYMPHOCYTES % (AUTO) 10.8 % (13-45); MEAN CORPUSCULAR HEMOGLOBIN 31.1 pg (27.0-33.4); MEAN CORPUSCULAR HGB CONC 34.4 g/dL (32.0-36.0); MEAN CORPUSCULAR VOLUME 90 fl (80-97); MONOCYTES % (AUTO) 5.1 % (3-13); PLATELET COUNT 175 10^3/uL (150-450); RED BLOOD COUNT 5.33 10^6/uL (4.35-5.55); RED CELL DISTRIBUTION WIDTH 13.8 % (11.5-14.0); SEGMENTED NEUTROPHILS % (AUTO) 82.8 % (42-78); TOTAL CELLS COUNTED % (AUTO) 100 %; WHITE BLOOD COUNT 11.9 10^3/uL (4.0-10.5)
[2020-02-08 08:48] LABS: ALBUMIN 4.1 g/dL (3.5-5.0); ALKALINE PHOSPHATASE 64 U/L (38-126); ASPARTATE AMINO TRANSFERASE 25 U/L (17-59); BILIRUBIN,DIRECT 0.2 mg/dL (0.0-0.4); BILIRUBIN,TOTAL 0.5 mg/dL (0.2-1.3); BLOOD UREA NITROGEN 14 mg/dL (7-20); CALCIUM 9.2 mg/dL (8.4-10.2); GLUCOSE 97 mg/dL (75-110); POTASSIUM 4.4 mmol/L (3.6-5.0); TOTAL PROTEIN 7.3 g/dL (6.3-8.2)
[2020-02-08 08:53] LABS: CARBON DIOXIDE 32 mmol/L (22-30); CHLORIDE 103 mmol/L (98-107)
[2020-02-08 09:06] LABS: ANION GAP 4 (5-19)
--- NOTE | 2020-02-08 09:23 | RADIOLOGY REPORT (SQ) ---
EXAM DESCRIPTION: U/S ABDOMEN LIMITED W/O DOP IMAGES COMPLETED DATE/TIME: 02/08/2020 9:11 am REASON FOR STUDY: upper abd pain COMPARISON: None. TECHNIQUE: Dynamic and static grayscale images acquired of the abdomen and recorded on PACS. Additio nal selected color Doppler and spectral images recorded. Note: Exam does not meet criteria for a complete doppler/duplex scan LIMITATIONS: Study limited due to acoustical interference from fat or from air in the bowel. FINDINGS: PANCREAS: Obscured. LIVER: Enlarged, measuring 19.5 cm. Echotexture is coarse with increased echogenicity consistent wit h fatty infiltration. Small focal area of fatty sparing. LIVER VASCULATURE: Normal directional flow of the main portal vein and hepatic veins. GALLBLADDER: No stones. Normal wall thickness. No pericholecystic fluid. ULTRASOUND-DETECTED WHEELER'S SIGN: Negative. INTRAHEPATIC DUCTS AND COMMON DUCT: CBD and intrahepatic ducts normal caliber. No filling defects. INFERIOR VENA CAVA: Normal flow. AORTA: No aneurysm. RIGHT KIDNEY: Normal size. Normal echogenicity. No solid or suspicious masses. No hydronephrosis. No calcifications. PERITONEAL AND PLEURAL SPACES: No ascites or effusions. OTHER: No other significant finding. IMPRESSION: FATTY INFILTRATION OF THE LIVER. NO OTHER SIGNIFICANT FINDING IN THE VISUALIZED ABDOMEN. TECHNICAL DOCUMENTATION: JOB ID: [id number] 2010 [employer]- All Rights Reserved Reading location - IP/workstation name: [email or web address]
--- NOTE | 2020-02-08 09:50 | EKG REPORT ---
SEVERITY:- NORMAL ECG - SINUS RHYTHM : Confirmed by: Monserrat Espinoza MD 08-Feb-2020 09:49:49
[2020-02-08 10:05] LABS: APPEARANCE,URINE CLEAR; BILIRUBIN,URINE NEGATIVE (NEGATIVE); COLOR,URINE YELLOW; GLUCOSE, URINE NEGATIVE (NEGATIVE); KETONES,URINE NEGATIVE (NEGATIVE); LEUKOCYTE ESTERASE,URINE NEGATIVE (NEGATIVE); NITRITE,URINE NEGATIVE (NEGATIVE); PROTEIN,URINE NEGATIVE (NEGATIVE); URINE SPECIFIC GRAVITY 1.016; UROBILINOGEN,URINE NEGATIVE mg/dL (<2.0)
[2020-02-08] MEDS ORDERED: LIDOCAINE 2% VISCOUS SOLN 15 ML UDCUP PO ONE (10:21)
[2020-02-08] MEDS ORDERED: MAG HYDROX/AL HYDROX/SIMETH SUSP 30 ML UDCUP PO ONE (10:21)
[2020-02-08 11:28] VITALS: BP 109/68
== END 2020-02-08 11:28 | disposition home or self-care (01) ==
LOC: ER 07:00
DX: K29.00 Acute gastritis without bleeding (principal); R10.13 Epigastric pain; R11.0 Nausea; F17.200 Nicotine dependence, unspecified, uncomplicated; Z88.0 Allergy status to penicillin
CPT/HCPCS: 93005; 99284; 96361; 96374; 96375; 36415; 83690; 85025; 80053; 81001; 76705; 93010; J3010; J3490; J2405; J7030

== ENCOUNTER 2020-02-11 22:21 | Emergency (ER) | payer OTHER ==
[2020-02-11 22:41] VITALS: BP 122/77
--- NOTE | 2020-02-11 23:24 | ER Document Report ---
ED Medical Screen (RME) - General Chief Complaint: Abdominal Pain Stated Complaint: ABDOMINAL BLOATING/PAIN Time Seen by Provider: 02/11/20 23:17 Primary Care Provider: ALEN HERRERA MD [Primary Care Provider] - Follow up as needed Notes: HPI: 44-year-old male presenting to the emergency department for evaluation of continued abdominal pain and bloating. Patient states he was seen 4 days ago for similar complaint. The discomfort was more in the epigastric region. Patient states that he did have some improvement in his discomfort over the last several days but had more severe generalized abdominal pain earlier today while at work. He now feels very bloated. States pain has somewhat subsided at this time. Was able to move his bowels earlier today. Patient denies nausea vomiting or fever I have greeted and performed a rapid initial assessment of this patient. A comprehensive ED assessment and evaluation of the patient, analysis of test results and completion of the medical decision making process will be conducted by additional ED providers PHYSICAL EXAMINATION: Mild tenderness in the right lateral abdomen on palpation. No visible or palpable hernias at this time. Bowel sounds are intact in all 4 quadrants I have greeted and performed a rapid initial assessment of this patient. A comprehensive ED assessment and evaluation of the patient, analysis of test results and completion of medical decision making process will be conducted by an additional ED providers. TRAVEL OUTSIDE OF THE [place] IN LAST 30 DAYS: No - Related Data Allergies/Adverse Reactions: Penicillins Allergy (Severe, Verified 04/09/19 17:05) Anaphylaxis Past Medical History - Past Medical History Cardiac Medical History: Denies: Hx Hypertension Pulmonary Medical History: Denies: Hx Asthma, Hx Bronchitis, Hx COPD Neurological Medical History: Denies: Hx Migraine, Hx Seizures Endocrine Medical History: Denies: Hx Diabetes Mellitus Type 1, Hx Diabetes Mellitus Type 2 Renal/ Medical History: Denies: Hx Peritoneal Dialysis GI Medical History: Denies: Hx Gastritis, Hx Gastroesophageal Reflux Disease, Hx Hepatitis, Hx Pancreatitis Musculoskeltal Medical History: Denies Hx Gout, Reports Hx Musculoskeletal Deformity, Reports Hx Musculoskeletal Trauma Psychiatric Medical History: Denies: Hx Depression Infectious Medical History: Denies: Hx Hepatitis Past Surgical History: Reports: Hx Herniorrhaphy, Hx Inguinal Hernia, Hx Orthopedic Surgery - back, umbilical, double hernia,, Hx Umbilical Hernia Physical Exam - Vital signs Vitals: Temp Pulse Resp BP Pulse Ox 98.3 F 77 16 122/77 97 02/11/20 22:39 02/11/20 22:39 02/11/20 22:39 02/11/20 22:39 02/11/20 22:39 Course - Vital Signs Vital signs: Temp Pulse Resp BP Pulse Ox 98.3 F 77 16 122/77 97 02/11/20 22:39 02/11/20 22:39 02/11/20 22:39 02/11/20 22:39 02/11/20 22:39 Doctor's Discharge - Discharge Referrals: ALEN HERRERA MD [Primary Care Provider] - Follow up as needed
[2020-02-12 00:02] LABS: ABSOLUTE BASOPHILS # (AUTO) 0.1 10^3/uL (0.0-0.2); ABSOLUTE EOSINOPHILS # (AUTO) 0.2 10^3/uL (0.0-0.6); ABSOLUTE LYMPHOCYTES (AUTO) 1.8 10^3/uL (0.5-4.7); ABSOLUTE MONOCYTES (AUTO) 0.5 10^3/uL (0.1-1.4); BASOPHILS % (AUTO) 0.7 % (0-2); HEMATOCRIT 42.7 % (37.9-51.0); HEMOGLOBIN 14.9 g/dL (13.5-17.0); LYMPHOCYTES % (AUTO) 23.4 % (13-45); MEAN CORPUSCULAR HEMOGLOBIN 31.2 pg (27.0-33.4); MEAN CORPUSCULAR HGB CONC 34.8 g/dL (32.0-36.0); MEAN CORPUSCULAR VOLUME 90 fl (80-97); MONOCYTES % (AUTO) 7.2 % (3-13); PLATELET COUNT 187 10^3/uL (150-450); RED BLOOD COUNT 4.76 10^6/uL (4.35-5.55); RED CELL DISTRIBUTION WIDTH 13.7 % (11.5-14.0); SEGMENTED NEUTROPHILS % (AUTO) 66.7 % (42-78); TOTAL CELLS COUNTED % (AUTO) 100 %; WHITE BLOOD COUNT 7.5 10^3/uL (4.0-10.5)
[2020-02-12 00:04] LABS: APPEARANCE,URINE CLEAR; BILIRUBIN,URINE NEGATIVE (NEGATIVE); COLOR,URINE YELLOW; GLUCOSE, URINE NEGATIVE (NEGATIVE); KETONES,URINE NEGATIVE (NEGATIVE); LEUKOCYTE ESTERASE,URINE NEGATIVE (NEGATIVE); NITRITE,URINE NEGATIVE (NEGATIVE); PROTEIN,URINE 30 mg/dL (NEGATIVE); URINE SPECIFIC GRAVITY 1.023
[2020-02-12 00:23] LABS: ALBUMIN 4.2 g/dL (3.5-5.0); ALKALINE PHOSPHATASE 55 U/L (38-126); ANION GAP 5 (5-19); ASPARTATE AMINO TRANSFERASE 26 U/L (17-59); BILIRUBIN,TOTAL 0.4 mg/dL (0.2-1.3); BLOOD UREA NITROGEN 17 mg/dL (7-20); CALCIUM 9.1 mg/dL (8.4-10.2); CARBON DIOXIDE 33 mmol/L (22-30); CHLORIDE 102 mmol/L (98-107); GLUCOSE 88 mg/dL (75-110); POTASSIUM 3.9 mmol/L (3.6-5.0)
--- NOTE | 2020-02-12 01:49 | RADIOLOGY REPORT (SQ) ---
EXAM DESCRIPTION: XR ABDOMEN 2 VIEWS SUPINE ERECT COMPLETED DATE/TME: 02/11/2020 23:22 CLINICAL HISTORY: 44 years, Male, abd pain bloating COMPARISON: None. NUMBER OF VIEWS: 3 TECHNIQUE: Supine and erect views of the abdomen LIMITATIONS: None. FINDINGS: The bowel gas pattern is nonspecific. Postsurgical changes of the lumbar spine. Gas and stool throughout colon. A few mildly dilated air-filled loops of small bowel centrally with air-fluid levels could reflect ileus. Maximal diameter of small bowel is 3.8 cm. No free air. IMPRESSION: A few mildly dilated small bowel air-fluid levels may reflect ileus. Follow-up recommended copyright 2010 [employer]- All Rights Reserved
--- NOTE | 2020-02-12 05:36 | ER Document Report ---
ED General - General Chief Complaint: Abdominal Pain Stated Complaint: ABDOMINAL BLOATING/PAIN Time Seen by Provider: 02/11/20 23:17 Primary Care Provider: ALEN HERRERA MD [Primary Care Provider] - Follow up as needed TRAVEL OUTSIDE OF THE [place] IN LAST 30 DAYS: No - HPI Notes: Unable to evaluate patient. Upon walking into patient's room patient stated that nobody in this hospital cares about him and was extremely upset about wait time. I attempted to address his concerns and assure him that I did care about his symptoms but patient immediately walked out saying "yeah, nobody cares about me here, I am leaving my family is in the parking lot." Patient refused to stay for AMA paperwork but was clinically sober, ambulatory with steady gait, and despite anger appeared to have capacity to make decisions regarding his own medical care. No indication to hold in the ED against his will. - Related Data Allergies/Adverse Reactions: Penicillins Allergy (Severe, Verified 04/09/19 17:05) Anaphylaxis Past Medical History - General Information source: [facility] Records Cannot obtain history due to: Uncooperative - Social History Smoking Status: Unknown if Ever Smoked Family History: Reviewed & Not Pertinent, Other Patient has suicidal ideation: No Patient has homicidal ideation: No - Past Medical History Cardiac Medical History: Denies: Hx Hypertension Pulmonary Medical History: Denies: Hx Asthma, Hx Bronchitis, Hx COPD Neurological Medical History: Denies: Hx Migraine, Hx Seizures Endocrine Medical History: Denies: Hx Diabetes Mellitus Type 1, Hx Diabetes Mellitus Type 2 Renal/ Medical History: Denies: Hx Peritoneal Dialysis GI Medical History: Denies: Hx Gastritis, Hx Gastroesophageal Reflux Disease, Hx Hepatitis, Hx Pancreatitis Musculoskeletal Medical History: Denies Hx Gout, Reports Hx Musculoskeletal Deformity, Reports Hx Musculoskeletal Trauma Psychiatric Medical History: Denies: Hx Depression Infectious Medical History: Denies: Hx Hepatitis Past Surgical History: Reports: Hx Herniorrhaphy, Hx Inguinal Hernia, Hx Orthopedic Surgery - back, umbilical, double hernia,, Hx Umbilical Hernia Review of Systems - Review of Systems -: Yes ROS unobtainable due to patient's medical condition - pt eloped prior to eval Physical Exam - Vital signs Vitals: Temp Pulse Resp BP Pulse Ox 98.3 F 77 16 122/77 97 02/11/20 22:39 02/11/20 22:39 02/11/20 22:39 02/11/20 22:39 02/11/20 22:39 - Notes Notes: Normal respiratory rate and effort, ambulatory with steady gait, speaking in clear full sentences, unable to fully examine secondary to patient elopement. Course - Re-evaluation Re-evalutation: 02/12/20 05:35 Patient eloped few seconds after going into patient's room. - Vital Signs Vital signs: Temp Pulse Resp BP Pulse Ox 98.3 F 77 16 122/77 97 02/11/20 22:39 02/11/20 22:39 02/11/20 22:39 02/11/20 22:39 02/11/20 22:39 - Laboratory Result Diagrams: 02/11/20 23:40 02/11/20 23:40 Laboratory results interpreted by me: 02/11/20 02/11/20 23:40 23:40 Carbon Dioxide 33 H Urine Protein 30 H Urine Blood LARGE H Urine Urobilinogen 2.0 H Discharge - Discharge Clinical Impression: Abdominal pain Qualifiers: Abdominal location: unspecified location Qualified Code(s): R10.9 - Unspecified abdominal pain Disposition: ELOPED Referrals: ALEN HERRERA MD [Primary Care Provider] - Follow up as needed
== END 2020-02-12 03:31 | disposition left against medical advice (07) ==
LOC: ER 22:21
DX: R10.9 Unspecified abdominal pain (principal); R14.0 Abdominal distension (gaseous); Z88.0 Allergy status to penicillin; Z53.29 Procedure and treatment not carried out because of patient's decision for other reasons
CPT/HCPCS: 36415; 74019; 80053; 81001; 83690; 85025; 99281

== ENCOUNTER → 2020-02-13 | Outpatient (CLI) | payer OTHER ==
--- NOTE | 2020-02-13 08:30 | RADIOLOGY REPORT (SQ) ---
EXAM DESCRIPTION: CT ABD/PELVIS WITH IV ORAL IMAGES COMPLETED DATE/TIME: 02/13/2020 8:09 am REASON FOR STUDY: LEFT SIDED ABD PAIN (R10.9) R10.9 UNSPECIFIED ABDOMINAL PAIN COMPARISON: None. TECHNIQUE: CT scan of the abdomen and pelvis performed using helical scanning technique with dynamic intravenous contrast injection. No oral contrast. Images reviewed with lung, soft tissue, and bone windows. Reconstructed coronal and sagittal MPR images reviewed. Delayed images for evaluation of the urinary system also acquired. All images stored on PACS. All CT scanners at this facility use dose modulation, iterative reconstruction, and/or weight based d osing when appropriate to reduce radiation dose to as low as reasonably achievable (ALARA). [facility]: Dose Right [facility]: CareDose [facility]: Dose Right [facility]: Teradose 4D [facility]: HistoRx CONTRAST TYPE AND DOSE: contrast/concentration: Isovue 350.00 mg/ml; Total Contrast Delivered: 100.0 ml; Total Saline Delivered: 72.0 ml RENAL FUNCTION: BUN 17, creatinine 0.93 RADIATION DOSE: CT Rad equipment meets quality standard of care and radiation dose reduction techniq ues were employed. CTDIvol: 13.5 - 13.6 mGy. DLP: 1590 mGy-cm.. LIMITATIONS: None. FINDINGS: LOWER CHEST: No significant findings. No nodules or infiltrates. LIVER: Normal size. No masses. No dilated ducts. SPLEEN: Normal size. No focal lesions. PANCREAS: No masses. No significant calcifications. No adjacent inflammation or peripancreatic fluid collections. Pancreatic duct not dilated. GALLBLADDER: No identified stones by CT criteria. No inflammatory changes to suggest cholecystitis. ADRENAL GLANDS: No significant masses or asymmetry. RIGHT KIDNEY AND URETER: There are small hypoattenuating lesions in the right kidney most likely cyst s but too small to accurately characterize. No significant calcifications. No hydronephrosis or h ydroureter. LEFT KIDNEY AND URETER: No solid masses. No significant calcifications. No hydronephrosis or hydr oureter. AORTA AND VESSELS: No aneurysm. No dissection. Renal arteries, SMA, celiac without stenosis. RETROPERITONEUM: No retroperitoneal adenopathy, hemorrhage or masses. BOWEL AND PERITONEAL CAVITY: No masses or inflammatory changes. No free fluid or peritoneal masses. APPENDIX: Normal. PELVIS: No mass. No free fluid. Normal bladder. ABDOMINAL WALL: No masses. No hernias. BONES: No significant or acute findings. OTHER: No other significant finding. IMPRESSION: No acute findings in the abdomen or pelvis. Suspect small right renal cysts although th e hypoattenuating lesions are too small to accurately characterize. TECHNICAL DOCUMENTATION: JOB ID: [id number] Quality ID # [id number]: Final reports with documentation of one or more dose reduction techniques (e.g., Au tomated exposure control, adjustment of the mA and/or kV according to patient size, use of iterative reconstruction technique) 2010 [employer]- All Rights Reserved Reading location - IP/workstation name: [email or web address]-
== END ==
LOC: RAD 07:36
PROVIDERS: ATTEND Family Medicine
DX: R10.9 Unspecified abdominal pain (principal)
CPT/HCPCS: 74177

== ENCOUNTER → 2020-04-21 | Outpatient (CLI) | payer OTHER ==
[2020-04-21 16:44] LABS: APPEARANCE,URINE CLEAR; BILIRUBIN,URINE NEGATIVE (NEGATIVE); COLOR,URINE YELLOW; GLUCOSE, URINE NEGATIVE (NEGATIVE); KETONES,URINE NEGATIVE (NEGATIVE); LEUKOCYTE ESTERASE,URINE NEGATIVE (NEGATIVE); NITRITE,URINE NEGATIVE (NEGATIVE); PROTEIN,URINE NEGATIVE (NEGATIVE); URINE SPECIFIC GRAVITY 1.024; UROBILINOGEN,URINE NEGATIVE mg/dL (<2.0)
[2020-04-21 16:49] LABS: ABSOLUTE BASOPHILS # (AUTO) 0.1 10^3/uL (0.0-0.2); ABSOLUTE EOSINOPHILS # (AUTO) 0.2 10^3/uL (0.0-0.6); ABSOLUTE LYMPHOCYTES (AUTO) 1.7 10^3/uL (0.5-4.7); ABSOLUTE MONOCYTES (AUTO) 0.5 10^3/uL (0.1-1.4); ABSOLUTE NEUT (AUTO) 5.2 10^3/uL (1.7-8.2); EOSINOPHILS % (AUTO) 2.5 % (0-6); HEMATOCRIT 41.6 % (37.9-51.0); HEMOGLOBIN 14.3 g/dL (13.5-17.0); LYMPHOCYTES % (AUTO) 22.1 % (13-45); MEAN CORPUSCULAR HEMOGLOBIN 31.6 pg (27.0-33.4); MEAN CORPUSCULAR HGB CONC 34.5 g/dL (32.0-36.0); MEAN CORPUSCULAR VOLUME 92 fl (80-97); PLATELET COUNT 177 10^3/uL (150-450); RED BLOOD COUNT 4.54 10^6/uL (4.35-5.55); RED CELL DISTRIBUTION WIDTH 13.5 % (11.5-14.0); SEGMENTED NEUTROPHILS % (AUTO) 67.4 % (42-78); TOTAL CELLS COUNTED % (AUTO) 100 %; WHITE BLOOD COUNT 7.6 10^3/uL (4.0-10.5)
[2020-04-21 16:56] LABS: INTERNATIONAL RATION (INR) 1.06; PROTHROMBIN TIME 13.8 SEC (11.4-15.4)
[2020-04-21 16:57] LABS: PARTIAL THROMBOPLASTIN TIME 29.9 SEC (23.5-35.8)
== END ==
LOC: OD 15:39
PROVIDERS: ATTEND Pain Medicine Interventional Pain Medicine
DX: Z01.812 Encounter for preprocedural laboratory examination (principal)
CPT/HCPCS: 36415; 81001; 85025; 85610; 85730